=== PATIENT | male | born 1960 | race Caucasian/White ===

== ENCOUNTER 2016-09-05 18:02 | Inpatient (IN) | payer OTHER ==
[~2016-09-05] VITALS: Ht 167.6 cm; Wt 113.0 kg
[~2016-09-05 18:02] MED LIST: ASPI81TA81 PO; BENT20TA PO; METO50TA PO; PANT20 PO; POTA75TA; PRAV40TA2 PO
[2016-09-05 18:04] VITALS: BP 148/70; PULSE 80; RESP 24; TEMP 99.1; O2SAT 90
[2016-09-05 19:13] VITALS: BP 204/89; PULSE 71; RESP 22; O2SAT 94
[2016-09-05 19:15] VITALS: BP 169/74; PULSE 70; PULSE 75; RESP 24; O2SAT 99
[2016-09-05] MEDS ORDERED: SODIUM CHLORIDE 0.9% FLUSH 10 ML FLUSH IVF PRN (19:15)
[2016-09-05] MEDS ORDERED: SODIUM CHLORID 0.9% 500 ML INJ 500 ML IV ONE (19:15)
[2016-09-05] MEDS ORDERED: ONDANSETRON HCL 4 MG/2 ML VIAL IV PUSH ONE (19:15)
--- NOTE | 2016-09-05 19:35 | PD ---
HPI Chief Complaint: Chest Pain Time Seen by Provider: 19:15 Travel History International Travel<30 days: No Contact w/Intl Traveler<30days: No Traveled to known affect area: No History of Present Illness HPI So 56-year-old man who presents to the emergency department complaining of abdominal bloating and vomiting that started ongoing for the past 4-5 days. He also started getting pressure-like discomfort in his chest intermittently, worse with nausea and vomiting, worse when he moves around. States he vomited 3 times today. He hasn't really been able to eat or drink. He's had a little bit of loose stool. His last bowel movement was yesterday was soft and loose. Is no history of abdominal surgeries. He does have a history of CAD with previous CABG in 2009. He also said kidney stones in the past. He is on chronic opiates for hip and back pain. He does not take NSAIDs regularly. He does not drink alcohol regularly. He otherwise has been feeling generally well and healthy prior to the onset of these symptoms. History Past Medical History Narrative Medical CAD, CABG in 2010 Kidney stones Hip and back pain Hypertension on hyperlipidemia BPH Social History Alcohol Use: Yes (SOCIALLY 2 months) Tobacco Use: No (QUIT 2009) Allergies-Medications (Allergen,Severity, Reaction): Coded Allergies: Penicillin (Verified Allergy, Severe, RASH, VOMITING, 09/05/16) Sulfa (Verified Allergy, Severe, RASH, VOMITING, 09/05/16) Reported Meds & Prescriptions Reported Meds & Active Scripts Active Reported Nitroglycerin SL (Nitroglycerin) 0.4 Mg Subl 0.4 Mg SL DIRECTED PRN ONE TABLET UNDER THE TONGUE NEEDED FOR CHEST PAIN, MAY REPEAT EVERY FIVE MINUTES FOR A TOTAL OF 3 DOSES OR CALL 911 IF NO RELIEF Fish Oil 1000 mg ([place]-3 Fatty Acids) 1 Cap Cap 2,000 Mg PO DAILY Tamsulosin (Tamsulosin HCl) 0.4 Mg Cap 0.4 Mg PO HS Lasix (Furosemide) 20 Mg Tab 20 Mg PO DAILY@1600 PRN Lasix (Furosemide) 40 Mg Tab 40 Mg PO DAILY Xanax (Alprazolam) 0.25 Mg Tab 0.25 Mg PO HS PRN Enalapril (Enalapril Maleate) 10 Mg Tab 10 Mg PO BID Isosorbide Mononitrate ER (Isosorbide Mononitrate) 60 Mg Tab 60 Mg PO HS Percocet (Oxycodone-Acetaminophen) 5-325 mg Tab 1 Tab PO 5 TIMES A DAY PRN Buspirone (Buspirone HCl) 5 Mg Tab 5 Mg PO DAILY@1600 Metoprolol Tartrate 100 Mg Tab 100 Mg PO BID Aspir-81 (Aspirin) 81 Mg Tabdr 81 Mg PO DAILY Pravastatin 40 Mg Tab 40 Mg PO DAILY Review of Systems Except as stated in HPI: all other systems reviewed are Neg Physical Exam Narrative GENERAL: 56-year-old man, no acute distress. SKIN: Focused skin assessment warm/dry. NECK: Trachea midline. No JVD. CARDIOVASCULAR: Regular rate and rhythm. No murmur appreciated. RESPIRATORY: No accessory muscle use. Clear to auscultation. Breath sounds equal bilaterally. GASTROINTESTINAL: Abdomen is obese and soft, moderate diffuse tenderness. There is no focal right upper quadrant tenderness. Negative Briones's. MUSCULOSKELETAL: No obvious deformities. No edema. NEUROLOGICAL: Awake and alert. No obvious cranial nerve deficits. Motor grossly within normal limits. Normal speech. PSYCHIATRIC: Appropriate mood and affect; insight and judgment normal. Data Data Last Documented VS Vital Signs Date Time Temp Pulse Resp B/P Pulse Ox O2 Delivery O2 Flow Rate FiO2 09/05/16 20:54 79 22 149/70 98 Nasal Cannula 2 09/05/16 18:04 99.1 Orders Electrocardiogram (09/05/16 19:15) Complete Blood Count With Diff (09/05/16 19:15) Comprehensive Metabolic Panel (09/05/16 19:15) Magnesium (Mg) (09/05/16 19:15) Prothrombin Time / Inr (Pt) (09/05/16 19:15) Act Partial Throm Time (Ptt) (09/05/16 19:15) Troponin I (09/05/16 19:15) Lipase (09/05/16 19:15) Chest, Single Ap (09/05/16 19:15) Ecg Monitoring (09/05/16 19:15) Bilateral Bp Monitoring (09/05/16 19:15) Iv Access Insert/Monitor (09/05/16 19:15) Oximetry (09/05/16 19:15) Oxygen Administration (09/05/16 19:15) Sodium Chloride 0.9% Flush (Ns Flush) (7/15/17 19:15) Sodium Chlorid 0.9% 500 Ml Inj (Ns 500 M (09/05/16 19:15) Ondansetron Inj (Zofran Inj) (09/05/16 19:15) Oxycodone-Acetamin 5-325 Mg (Percocet (09/05/16 21:15) Urinalysis - C+S If Indicated (09/05/16 21:08) Us Kidney/Renal/Bladder (09/05/16 ) Ed Poc Ultrasound (09/05/16 21:08) Admit Order (Ed Use Only) (09/05/16 ) Labs Laboratory Tests Test 09/05/16 19:20 White Blood Count 9.4 TH/MM3 Red Blood Count 4.21 MIL/MM3 Hemoglobin 12.5 GM/DL Hematocrit 37.2 % Mean Corpuscular Volume 88.5 FL Mean Corpuscular Hemoglobin 29.8 PG Mean Corpuscular Hemoglobin 33.6 % Concent Red Cell Distribution Width 14.1 % Platelet Count 166 TH/MM3 Mean Platelet Volume 9.0 FL Neutrophils (%) (Auto) 74.4 % Lymphocytes (%) (Auto) 14.0 % Monocytes (%) (Auto) 11.1 % Eosinophils (%) (Auto) 0.2 % Basophils (%) (Auto) 0.3 % Neutrophils # (Auto) 7.0 TH/MM3 Lymphocytes # (Auto) 1.3 TH/MM3 Monocytes # (Auto) 1.0 TH/MM3 Eosinophils # (Auto) 0.0 TH/MM3 Basophils # (Auto) 0.0 TH/MM3 CBC Comment DIFF FINAL Differential Comment Prothrombin Time 10.7 SEC Prothromb Time International 1.0 RATIO Ratio Activated Partial 31.8 SEC Thromboplast Time Sodium Level 128 MEQ/L Potassium Level 5.0 MEQ/L Chloride Level 93 MEQ/L Carbon Dioxide Level 26.3 MEQ/L Anion Gap 9 MEQ/L Blood Urea Nitrogen 63 MG/DL Creatinine 5.37 MG/DL Estimat Glomerular Filtration 11 ML/MIN Rate Random Glucose 106 MG/DL Calcium Level 8.1 MG/DL Magnesium Level 2.2 MG/DL Total Bilirubin 0.4 MG/DL Aspartate Amino Transf 12 U/L (AST/SGOT) Alanine Aminotransferase 18 U/L (ALT/SGPT) Alkaline Phosphatase 118 U/L Troponin I LESS THAN 0.02 NG/ML Total Protein 7.8 GM/DL Albumin 3.7 GM/DL Lipase 51 U/L [facility] Medical Decision Making Medical Screen Exam Complete: Yes Emergency Medical Condition: Yes Interpretation(s) My review of EKG: Normal sinus rhythm at a rate of 74, normal axis, normal intervals, no ischemia. Differential Diagnosis Gastritis, pancreatitis, ACS, enteritis, kidney stone, other Narrative Course Medical decision making So 56 old man who presents to the emergency department complaining of abdominal bloating vomiting and chest pressure. He looks generally well. Symptoms are fairly diffuse. It doesn't sound like ACS. He does have a history of CABG in the past. Moderate diffuse abdominal tenderness. Is no history of abdominal surgery. I don't think this is gallbladder, pancreatitis or gastritis is possible. No NSAID or alcohol use. ACS possible but seems less likely. Will check labs, will check CT of the abdomen given his diffuse tenderness in the abdominal bloating and vomiting. FINAL: Labs reveal kidney injury with a creatinine 5, BUN 63. Etiology is unclear. On further questioning he does have some urinary difficulties with obstructive uropathy symptoms. Bladder scan shows about 200 mL's in the bladder. He is not able to urinate much he feels like he needs to go. We'll get a formal ultrasound of his kidney ureters and bladder. Vomiting could also suggest dehydration. His potassium, bicarbonate otherwise unremarkable. We'll plan on admission. Procedures Procedure Narrative Point of care ultrasound: Focus transabdominal ultrasounds perform immediate the bedside for evidence of urinary retention. He had about 200+ mL's of urine in the bladder. Diagnosis Primary Impression: Kidney injury Additional Impressions: Vomiting Chest pain Richi Calhoun MD Sep 05, 2016 19:35
--- NOTE | 2016-09-05 19:41 | RADRPT ---
EXAM DATE/TIME: 09/05/2016 19:28 [facility] COMPARISON: No previous studies available for comparison. INDICATIONS : Chest pressure. MEDICAL HISTORY : Cardiovascular disease. SURGICAL HISTORY : Triple bypass ENCOUNTER: Initial ACUITY: 2 days PAIN SCORE: 7/10 LOCATION: Bilateral chest Center FINDINGS: The lungs are clear without infiltrate, nodule, or mass. There is no appreciable pleural effusion fo r technique. Heart and mediastinum are unremarkable. There is evidence for prior median sternotomy. CONCLUSION: No acute cardiopulmonary disease. Oneal Bridges MD on September 05, 2016 at 19:39 Board Certified Radiologist. This report was verified electronically.
[2016-09-05] MEDS ORDERED: PERC5TAB12 PO (19:43)
[2016-09-05] MEDS ORDERED: BUSP5TAB PO (19:43)
[2016-09-05] MEDS ORDERED: METO100T PO (19:43)
[2016-09-05] MEDS ORDERED: ALPR.25 PO (19:44)
[2016-09-05] MEDS ORDERED: ENAL10TA PO (19:44)
[2016-09-05] MEDS ORDERED: ISOS60TA PO (19:44)
[2016-09-05] MEDS ORDERED: FURO1TAB60 PO (19:47)
[2016-09-05] MEDS ORDERED: TAMS0.4C4 PO (19:47)
[2016-09-05] MEDS ORDERED: FURO1TAB62 PO (19:47)
[2016-09-05] MEDS ORDERED: NITR1SUB3 SL (19:47)
[2016-09-05] MEDS ORDERED: FISH100020 PO (19:47)
[2016-09-05 20:18] LABS: BASOPHIL % 0.3 % (0.0-2.0); EOSINOPHIL % 0.2 % (0.0-4.0); HEMATOCRIT 37.2 % (39.0-51.0); HEMO FLAGS DIFF FINAL; LYMPHOCYTE # 1.3 TH/MM3 (1.0-4.8); MEAN CELL VOLUME 88.5 FL (80.0-100.0); MEAN CORPUSCULAR HEMOGLOBIN 29.8 PG (27.0-34.0); MEAN CORPUSCULAR HGB CONC 33.6 % (32.0-36.0); MONO % 11.1 % (0.0-8.0); NEUT % 74.4 % (16.0-70.0); PLATELET COUNT 166 TH/MM3 (150-450); RED BLOOD COUNT 4.21 MIL/MM3 (4.50-5.90); RED CELL DISTRIBUTION WIDTH 14.1 % (11.6-17.2); WHITE BLOOD COUNT 9.4 TH/MM3 (4.0-11.0)
[2016-09-05 20:35] LABS: ANION GAP 9 MEQ/L (5-15); AST (GOT) 12 U/L (15-37); BICARBONATE 26.3 MEQ/L (21.0-32.0); BLOOD UREA NITROGEN 63 MG/DL (7-18); CHLORIDE 93 MEQ/L (98-107); GLOMERULAR FILTRATION RATE 11 ML/MIN (>89); MAGNESIUM 2.2 MG/DL (1.5-2.5); SODIUM (NA) 128 MEQ/L (136-145)
[2016-09-05 20:36] LABS: ALT (GPT) 18 U/L (12-78)
[2016-09-05 20:40] LABS: ALKALINE PHOSPHATASE 118 U/L (45-117); TOTAL BILIRUBIN ADULT 0.4 MG/DL (0.2-1.0)
[2016-09-05 20:54] VITALS: BP 149/70; PULSE 79; RESP 22; O2SAT 98
[2016-09-05 21:03] LABS: APTT (PATIENT) 31.8 SEC (24.3-30.1); PROTHROMBIN TIME - PATIENT 10.7 SEC (9.8-11.6)
[2016-09-05] MEDS ORDERED: oxyCODONE/ACETAMINOPHEN 5 MG/325 MG TAB PO ONE (21:15)
[2016-09-05 22:10] LABS: BLOOD, URINE NEG (NEG); COMMENT (UR) CULT NOT INDICATED; CULTURE IF INDICATED CULT NOT INDICATED; GLUCOSE,URINE NEG (NEG); KETONE, URINE NEG (NEG); NITRITE,URINE NEG (NEG); URINE COLOR LIGHT-YELLOW (YELLW/STRAW)
[2016-09-05] MEDS ORDERED: ALPRAZolam 0.25 MG TAB PO PRN (22:30)
--- NOTE | 2016-09-05 22:55 | HHI.HP ---
HPI Service [facility] Primary Care Physician Bradley Osorio M.D. Admission Diagnosis acute kidney injury, vomiting, chest pain Chief Complaint: progressive nausea and vomit abdominal pain trouble urinating since wednesday Travel History International Travel<30 Days: No Contact w/Intl Traveler <30 Da: No Traveled to Known Affected Are: No History of Present Illness So 56-year-old man who presents to the emergency department complaining of abdominal bloating and vomiting that started ongoing for the past 4-5 days. He also started getting pressure-like discomfort in his chest intermittently, worse with nausea and vomiting, worse when he moves around. States he vomited 3 times today. He hasn't really been able to eat or drink. He's had a little bit of loose stool. His last bowel movement was yesterday was soft and loose. Is no history of abdominal surgeries. He does have a history of CAD with previous CABG in 2009. He also said kidney stones in the past and with this current problem has had some trouble urinating. He is on chronic opiates for hip and back pain. He does not take NSAIDs regularly but did take 2 motrin. He does not drink alcohol regularly. He otherwise has been feeling generally well and healthy prior to the onset of these symptoms. Review of Systems Constitutional: COMPLAINS OF: Change in appetite Cardiovascular: COMPLAINS OF: Chest pain Gastrointestinal: COMPLAINS OF: Abdominal pain, Nausea, Vomiting Past Family Social History Past Medical History cad,s/p bypass,hypertension,hyperlipdemia bph Past Surgical History cabs Reported Medications Nitroglycerin SL (Nitroglycerin) 0.4 Mg Subl 0.4 Mg SL DIRECTED PRN ONE TABLET UNDER THE TONGUE NEEDED FOR CHEST PAIN, MAY REPEAT EVERY FIVE MINUTES FOR A TOTAL OF 3 DOSES OR CALL 911 IF NO RELIEF Fish Oil 1000 mg ([place]-3 Fatty Acids) 1 Cap Cap 2,000 Mg PO DAILY Tamsulosin (Tamsulosin HCl) 0.4 Mg Cap 0.4 Mg PO HS Lasix (Furosemide) 20 Mg Tab 20 Mg PO DAILY@1600 PRN Lasix (Furosemide) 40 Mg Tab 40 Mg PO DAILY Xanax (Alprazolam) 0.25 Mg Tab 0.25 Mg PO HS PRN Enalapril (Enalapril Maleate) 10 Mg Tab 10 Mg PO BID Isosorbide Mononitrate ER (Isosorbide Mononitrate) 60 Mg Tab 60 Mg PO HS Percocet (Oxycodone-Acetaminophen) 5-325 mg Tab 1 Tab PO 5 TIMES A DAY PRN Buspirone (Buspirone HCl) 5 Mg Tab 5 Mg PO DAILY@1600 Metoprolol Tartrate 100 Mg Tab 100 Mg PO BID Aspir-81 (Aspirin) 81 Mg Tabdr 81 Mg PO DAILY Pravastatin 40 Mg Tab 40 Mg PO DAILY Allergies: Coded Allergies: Penicillin (Verified Allergy, Severe, RASH, VOMITING, 09/05/16) Sulfa (Verified Allergy, Severe, RASH, VOMITING, 09/05/16) Social History former smoker former social drinker Physical Exam Vital Signs Vital Signs Date Time Temp Pulse Resp B/P Pulse Ox O2 Delivery O2 Flow Rate FiO2 09/05/16 20:54 79 22 149/70 98 Nasal Cannula 2 09/05/16 19:15 99 Nasal Cannula 2 09/05/16 19:15 75 24 169/74 99 Nasal Cannula 09/05/16 19:15 70 09/05/16 19:13 71 22 204/89 94 Room Air 09/05/16 18:04 99.1 80 24 148/70 90 Room Air Physical Exam GENERAL: This is a well-nourished, well-developed patient, in no apparent distress. SKIN: No rashes, ecchymoses or lesions. Cool and dry. HEAD: Atraumatic. Normocephalic. No temporal or scalp tenderness. EYES: Pupils equal round and reactive. Extraocular motions intact. No scleral icterus. No injection or drainage. ENT: Nose without bleeding, purulent drainage or septal hematoma. Throat without erythema, tonsillar hypertrophy or exudate. Uvula midline. Airway patent. NECK: Trachea midline. No JVD or lymphadenopathy. Supple, nontender, no meningeal signs. CARDIOVASCULAR: Regular rate and rhythm without murmurs, gallops, or rubs. RESPIRATORY: Clear to auscultation. Breath sounds equal bilaterally. No wheezes , rales, or rhonchi. GASTROINTESTINAL: Abdomen soft, mild diffuse tender, nondistended. No hepato- splenomegaly, or palpable masses. No guarding. MUSCULOSKELETAL: Extremities without clubbing, cyanosis, or edema. No joint tenderness, effusion, or edema noted. No calf tenderness. Negative Homans sign bilaterally. NEUROLOGICAL: Awake and alert. Cranial nerves II through XII intact. Motor and sensory grossly within normal limits. Five out of 5 muscle strength in all muscle groups. Normal speech. Laboratory Laboratory Tests Test 09/05/16 09/05/16 19:20 21:23 White Blood Count 9.4 Red Blood Count 4.21 Hemoglobin 12.5 Hematocrit 37.2 Mean Corpuscular Volume 88.5 Mean Corpuscular Hemoglobin 29.8 Mean Corpuscular Hemoglobin 33.6 Concent Red Cell Distribution Width 14.1 Platelet Count 166 Mean Platelet Volume 9.0 Neutrophils (%) (Auto) 74.4 Lymphocytes (%) (Auto) 14.0 Monocytes (%) (Auto) 11.1 Eosinophils (%) (Auto) 0.2 Basophils (%) (Auto) 0.3 Neutrophils # (Auto) 7.0 Lymphocytes # (Auto) 1.3 Monocytes # (Auto) 1.0 Eosinophils # (Auto) 0.0 Basophils # (Auto) 0.0 CBC Comment DIFF FINAL Differential Comment Prothrombin Time 10.7 Prothromb Time International 1.0 Ratio Activated Partial 31.8 Thromboplast Time Sodium Level 128 Potassium Level 5.0 Chloride Level 93 Carbon Dioxide Level 26.3 Anion Gap 9 Blood Urea Nitrogen 63 Creatinine 5.37 Estimat Glomerular Filtration 11 Rate Random Glucose 106 Calcium Level 8.1 Magnesium Level 2.2 Total Bilirubin 0.4 Aspartate Amino Transf 12 (AST/SGOT) Alanine Aminotransferase 18 (ALT/SGPT) Alkaline Phosphatase 118 Troponin I LESS THAN 0.02 Total Protein 7.8 Albumin 3.7 Lipase 51 Urine Color LIGHT-YELLOW Urine Turbidity CLEAR Urine pH 5.0 Urine Specific [place] 1.008 Urine Protein NEG Urine Glucose (UA) NEG Urine Ketones NEG Urine Occult Blood NEG Urine Nitrite NEG Urine Bilirubin NEG Urine Urobilinogen LESS THAN 2.0 Urine Leukocyte Esterase NEG Microscopic Urinalysis Comment CULT NOT INDICATED Result Diagram: 09/05/16191909/05/161919 Imaging Last 24 hours Impressions Chest X-Ray 09/05/161914 Signed Impressions: Service Date/Time: Wednesday, September 05, 2016 19:28 - CONCLUSION: No acute cardiopulmonary disease. Oneal Bridges MD Course in er had bladder scan about 200 cc and pending renal ultrasound Assessment and Plan Problem List: (1) Kidney injury Status: Acute Plan: patient had blood work done early this week results can be obtained in am ,patient has not been able to eat or drink well since wednesday contributing to the kidney injury will try full liquids and consult renal recheck labs give some iv fluid slowly patient will be on hold for now marcela and furosemide (2) Abdominal colic Status: Acute Plan: may have gastroenteritis will follow up labs check ultrasound and consider CT abd without contrast (3) Hypertension Status: Chronic Plan: continue home meds Assessment and Plan further plan as case develops Code Status full Discussed Condition With patient Physician Certification 2 Midnight Certification Type: Admission for Inpatient Services Order for Inpatient Services The services are ordered in accordance with Medicare regulations or non- Medicare payer requirements, as applicable. In the case of services not specified as inpatient-only, they are appropriately provided as inpatient services in accordance with the 2-midnight benchmark. Estimated LOS (days): 3 3 days is the estimated time the patient will need to remain in the hospital, assuming treatment plan goals are met and no additional complications. Post-Hospital Plan: Not yet determined Blake Mendiola MD Sep 05, 2016 22:55
[2016-09-05] MEDS ORDERED: NALOXONE HCL 0.4 MG/ML AMP IV PRN (23:00)
[2016-09-05] MEDS ORDERED: LACTULOSE SYRUP 20 GM/30 ML CUP PO PRN (23:00)
[2016-09-05] MEDS ORDERED: ACETAMINOPHEN 325 MG TAB PO PRN (23:00)
[2016-09-05] MEDS ORDERED: MAGNESIUM HYDROXIDE SUSP 30 ML CUP PO PRN (23:00)
[2016-09-05] MEDS ORDERED: SENNOSIDES 8.6 MG TAB PO PRN (23:00)
[2016-09-05] MEDS ORDERED: SODIUM CHLORIDE 0.9% FLUSH 10 ML FLUSH IV FLUSH PRN (23:00)
[2016-09-05] MEDS ORDERED: ONDANSETRON HCL 4 MG/2 ML VIAL IVP PRN (23:00)
[2016-09-05] MEDS ORDERED: BISACODYL 10 MG SUPP RECTAL PRN (23:00)
--- NOTE | 2016-09-05 23:08 | RADRPT ---
EXAM DATE/TIME: 09/05/2016 22:26 [facility] COMPARISON: CT ABDOMEN & PELVIS W CONTRAST, January 08, 2016, 20:43. INDICATIONS : Increased labs. MEDICAL HISTORY : Hypertension. Hypercholesterolemia. Myocardial infarction. Kidney stones. Arthritis. SURGICAL HISTORY : Coronary artery bypass graft. Cardiac catheterization. Bilateral hip replacement. ENCOUNTER: Initial ACUITY: 1 day PAIN SCORE: 5/10 LOCATION: Bilateral flank MEASUREMENTS: RIGHT KIDNEY: 13.2 x 5.8 x 7.2 cm LEFT KIDNEY: 13.2 x 5.3 x 6.9 cm FINDINGS: RIGHT KIDNEY: 3.7 x 3.6 cm simple cyst right lower pole kidney. LEFT KIDNEY: Renal cortex is normal in thickness and echotexture. No hydronephrosis, stone, or mass. BLADDER: Within normal limits given the degree of distension. CONCLUSION: 1. Simple cyst right kidney. Gómez Cobb MD on September 05, 2016 at 23:06 Board Certified Radiologist. This report was verified electronically.
[2016-09-05 23:09] VITALS: BP 145/63
[2016-09-05 23:20] VITALS: BP 171/83; PULSE 80; RESP 17; TEMP 98.1; O2SAT 94
[2016-09-05] MEDS: SODIUM CHLOR 0.45% 1000 ML INJ 1,000 ML IV SCH (23:37)
[2016-09-05] MEDS: oxyCODONE/ACETAMINOPHEN 5 MG/325 MG TAB PO PRN (23:38)
[2016-09-06 04:10] VITALS: BP 122/56; PULSE 71; RESP 17; TEMP 97.3; O2SAT 95
[2016-09-06 05:02] LABS: AUTOMATED NEUTROPHIL # 4.7 TH/MM3 (1.8-7.7); BASOPHIL % 0.4 % (0.0-2.0); EOSINOPHIL # 0.1 TH/MM3 (0-0.4); EOSINOPHIL % 0.9 % (0.0-4.0); HEMATOCRIT 33.4 % (39.0-51.0); HEMO FLAGS DIFF FINAL; LYMPH % 24.5 % (9.0-44.0); LYMPHOCYTE # 1.9 TH/MM3 (1.0-4.8); MEAN CELL VOLUME 88.2 FL (80.0-100.0); MEAN CORPUSCULAR HEMOGLOBIN 29.9 PG (27.0-34.0); MEAN CORPUSCULAR HGB CONC 33.9 % (32.0-36.0); NEUT % 61.2 % (16.0-70.0); PLATELET COUNT 153 TH/MM3 (150-450); RED BLOOD COUNT 3.78 MIL/MM3 (4.50-5.90); RED CELL DISTRIBUTION WIDTH 14.1 % (11.6-17.2); WHITE BLOOD COUNT 7.7 TH/MM3 (4.0-11.0)
[2016-09-06] MEDS: oxyCODONE/ACETAMINOPHEN 5 MG/325 MG TAB PO PRN ×4 (05:22→22:31)
[2016-09-06 05:24] LABS: ANION GAP 8 MEQ/L (5-15); AST (GOT) 11 U/L (15-37); BICARBONATE 27.9 MEQ/L (21.0-32.0); BLOOD UREA NITROGEN 64 MG/DL (7-18); CHLORIDE 98 MEQ/L (98-107); GLOMERULAR FILTRATION RATE 11 ML/MIN (>89); POTASSIUM 5.1 MEQ/L (3.5-5.1); SODIUM (NA) 134 MEQ/L (136-145)
[2016-09-06 05:25] LABS: ALT (GPT) 15 U/L (12-78)
[2016-09-06 05:27] LABS: ALKALINE PHOSPHATASE 102 U/L (45-117); TOTAL BILIRUBIN ADULT 0.4 MG/DL (0.2-1.0)
[2016-09-06 08:00] VITALS: BP 119/55; PULSE 70; RESP 18; TEMP 98; O2SAT 94
[2016-09-06] MEDS ORDERED: MISCELLANEOUS NURSING INFORMATION ONE (09:00)
[2016-09-06] MEDS: SODIUM CHLORIDE 0.9% FLUSH 10 ML FLUSH IV FLUSH SCH ×2 (09:00→21:00)
[2016-09-06] MEDS: METOPROLOL TARTRATE 100 MG TAB PO SCH ×2 (09:03→21:24)
[2016-09-06] MEDS: DOCUSATE SODIUM 50 MG/SENNA 8.6 MG TAB PO SCH ×2 (09:03→21:24)
[2016-09-06] MEDS: ASPIRIN EC 81 MG TABEC PO SCH (09:03)
[2016-09-06] MEDS: SODIUM CHLOR 0.45% 1000 ML INJ 1,000 ML IV SCH (10:55)
[2016-09-06 12:00] VITALS: BP 101/55; PULSE 60; RESP 18; TEMP 97.9; O2SAT 94
--- NOTE | 2016-09-06 12:38 | EKG ---
Date Performed: 09/05/2016 Time Performed: 19:13:23 PTAGE: 56 years EKG: Sinus rhythm WITH SINUS ARRHYTHMIA Compared to prior tracing no significant change NORMAL ECG PREVIOUS TRACING : 01/08/2016 20.56 DOCTOR: Mario Payan Interpretating Date/Time 09/06/2016 12:34:00
--- NOTE | 2016-09-06 14:08 | HHI.PR ---
Subjective Remarks still nauseated and vomiting not tolerating food get mid abdomen pain relieved with vomiting. somewhat dizzy Objective Vitals oriented heart reg lung cta abd s/nt/bs ext no edema Vital Signs Date Time Temp Pulse Resp B/P Pulse Ox O2 Delivery O2 Flow Rate FiO2 09/06/16 12:27 18 09/06/16 12:00 97.9 60 18 101/55 94 09/06/16 08:00 98.0 70 18 119/55 94 09/06/16 04:10 97.3 71 17 122/56 95 09/05/16 23:20 98.1 80 17 171/83 94 09/05/16 23:09 82 18 145/63 95 09/05/16 20:54 79 22 149/70 98 Nasal Cannula 2 09/05/16 19:15 99 Nasal Cannula 2 09/05/16 19:15 75 24 169/74 99 Nasal Cannula 09/05/16 19:15 70 09/05/16 19:13 71 22 204/89 94 Room Air 09/05/16 18:04 99.1 80 24 148/70 90 Room Air 09/05/16 09/05/16 09/06/16 14:59 22:59 06:59 Intake Total 940 ml Output Total 400 ml Balance 540 ml Intake Oral 440 ml IV Total 500 ml Output Urine Total 400 ml # Bowel Movements 0 Result Diagram: 09/06/1641009/06/16410 Imaging Last 24 hours Impressions Chest X-Ray 09/05/161914 Signed Impressions: Service Date/Time: Monday, September 05, 2016 19:28 - CONCLUSION: No acute cardiopulmonary disease. K. Sindey Bridges MD A/P Problem List: (1) GREGG (acute kidney injury) Status: Acute Plan: Pt is 56 yo with severe back and right hip pain "OA" says he was trying to get disability for the above 5-6 days ago began developing mid abdomen pains relieved with vomiting and made worse with eating GREGG on presentation. possible prerenal from n/v poor po... ...hydrate and if no better then eval for other etiologies. Esophagitis due to vomiting ct a/p to evaluate pain/vomiting pending cont ivf and prn antiemetics add ppi clears as tolerated dvt prophyaxis renal consulted. f/u pending studies. hold marcela and diuretic (2) Abdominal pain Status: Acute (3) Vomiting Status: Acute (4) Hip osteoarthritis Status: Chronic (5) Hypertension Status: Chronic Plan: continue home meds (6) CAD (coronary artery disease) Status: Chronic Plan: cabg x 3 cont home meds Eleazar Crane MD Sep 06, 2016 14:08
[2016-09-06] MEDS: SODIUM CHLOR 0.9% 1000 ML INJ 1,000 ML IV SCH ×2 (14:09→23:51)
[2016-09-06] MEDS ORDERED: ONDANSETRON HCL 4 MG/2 ML VIAL IV PUSH ONE (14:30)
[2016-09-06] MEDS ORDERED: PANTOPRAZOLE SODIUM 40 MG VIAL IV PUSH ONE (14:30)
[2016-09-06] MEDS ORDERED: SODIUM CHLORID 0.9% 500 ML INJ 500 ML IV ONE (14:30)
--- NOTE | 2016-09-06 14:35 | PD.CONS ---
HPI Service Nephrology Consult Requested By Dr. Mendiola Reason for Consult Acute kidney injury Primary Care Physician Bradley Osorio M.D. History of Present Illness Patient is a 56-year-old white male who states that he has history of hypertension, coronary artery disease status post CABG he states that he was having a disability check up and after going to the doctor's office records Persistent nausea and vomiting since last Wednesday and he has several episodes a cold dehydrated and his urine output did decline, is the creatinine is gradually going up from 5.3-5.5, his blood pressure is borderline low. He states he took her 2 or 3 Ibuprofen but he does not use NSAIDs over long-term Review of Systems Constitutional: COMPLAINS OF: Fatigue Gastrointestinal: COMPLAINS OF: Nausea, Vomiting Musculoskeletal: COMPLAINS OF: Joint pain Past Family Social History Allergies: Coded Allergies: Penicillin (Verified Allergy, Severe, RASH, VOMITING, 09/05/16) Sulfa (Verified Allergy, Severe, RASH, VOMITING, 09/05/16) Past Medical History Hypertension Coronary artery disease Osteoarthritis Hip pain Hyperlipidemia Past Surgical History Coronary artery bypass surgery 2009 Bilateral hip replacement Reported Medications Reported Meds & Active Scripts Active Reported Nitroglycerin SL (Nitroglycerin) 0.4 Mg Subl 0.4 Mg SL DIRECTED PRN ONE TABLET UNDER THE TONGUE NEEDED FOR CHEST PAIN, MAY REPEAT EVERY FIVE MINUTES FOR A TOTAL OF 3 DOSES OR CALL 911 IF NO RELIEF Fish Oil 1000 mg ([place]-3 Fatty Acids) 1 Cap Cap 2,000 Mg PO DAILY Tamsulosin (Tamsulosin HCl) 0.4 Mg Cap 0.4 Mg PO HS Lasix (Furosemide) 20 Mg Tab 20 Mg PO DAILY@1600 PRN Lasix (Furosemide) 40 Mg Tab 40 Mg PO DAILY Xanax (Alprazolam) 0.25 Mg Tab 0.25 Mg PO HS PRN Enalapril (Enalapril Maleate) 10 Mg Tab 10 Mg PO BID Isosorbide Mononitrate ER (Isosorbide Mononitrate) 60 Mg Tab 60 Mg PO HS Percocet (Oxycodone-Acetaminophen) 5-325 mg Tab 1 Tab PO 5 TIMES A DAY PRN Buspirone (Buspirone HCl) 5 Mg Tab 5 Mg PO DAILY@1600 Metoprolol Tartrate 100 Mg Tab 100 Mg PO BID Aspir-81 (Aspirin) 81 Mg Tabdr 81 Mg PO DAILY Pravastatin 40 Mg Tab 40 Mg PO DAILY Active Ordered Medications Current Medications Medications (Trade) Dose Ordered Sig/Nancy Route Start Time Stop Time Status Last Admin (Xanax) 0.25 mg HS PRN PO 09/05/16 22:30 (Ecotrin Ec) 81 mg DAILY PO 09/06/16 09:00 09/06/16 09:03 (Buspar) 5 mg DAILY@1600 PO 09/06/16 16:00 (Imdur) 60 mg HS PO 09/06/16 21:00 (Lopressor) 100 mg BID PO 09/06/16 09:00 09/06/16 09:03 (Flomax) 0.4 mg HS PO 09/06/16 21:00 (NS Flush) 2 ml UNSCH PRN IV FLUSH 09/05/16 23:00 (NS Flush) 2 ml BID IV FLUSH 09/06/16 09:00 (Tylenol) 650 mg Q4H PRN PO 09/05/16 23:00 (Narcan Inj) 0.4 mg UNSCH PRN IV 09/05/16 23:00 (Monica-Colace) 1 tab BID PO 09/06/16 09:00 09/06/16 09:03 (Milk Of Magnesia Liq) 30 ml Q12H PRN PO 09/05/16 23:00 (Senokot) 17.2 mg Q12H PRN PO 09/05/16 23:00 (Dulcolax Supp) 10 mg DAILY PRN RECTAL 09/05/16 23:00 (Lactulose Liq) 30 ml DAILY PRN PO 09/05/16 23:00 (Pneumovax-23 Inj) 25 mcg ONCE ONCE IM 09/07/16 10:00 09/07/16 10:01 (Zofran Inj) 4 mg Q4H PRN IVP 09/06/16 15:00 Ondansetron HCl 4 mg 4 mg ONCE ONCE IV PUSH 09/06/16 14:30 09/06/16 14:31 09/06/16 14:08 (NS 1000 ml Inj) 1,000 ml @ 100 mls/hr Q10H IV 09/06/16 14:30 09/06/16 14:09 (Protonix Inj) 40 mg ONCE ONCE IV PUSH 09/06/16 14:30 09/06/16 14:31 (Protonix Inj) 40 mg Q12H IV PUSH 09/06/16 21:00 Family History Noncontributory Social History Used to smoke until 2009, drinks alcohol socially Physical Exam Vital Signs Vital Signs Date Time Temp Pulse Resp B/P Pulse Ox O2 Delivery O2 Flow Rate FiO2 09/06/16 12:27 18 09/06/16 12:00 97.9 60 18 101/55 94 09/06/16 08:00 98.0 70 18 119/55 94 09/06/16 04:10 97.3 71 17 122/56 95 09/05/16 23:20 98.1 80 17 171/83 94 09/05/16 23:09 82 18 145/63 95 09/05/16 20:54 79 22 149/70 98 Nasal Cannula 2 09/05/16 19:15 99 Nasal Cannula 2 09/05/16 19:15 75 24 169/74 99 Nasal Cannula 09/05/16 19:15 70 09/05/16 19:13 71 22 204/89 94 Room Air 09/05/16 18:04 99.1 80 24 148/70 90 Room Air Physical Exam GENERAL: Well-nourished, well-developed patient. SKIN: Warm and dry. HEAD: Normocephalic. EYES: No scleral icterus. No injection or drainage. NECK: Supple, trachea midline. No JVD or lymphadenopathy. CARDIOVASCULAR: Regular rate and rhythm without murmurs, gallops, or rubs. RESPIRATORY: Breath sounds equal bilaterally. No accessory muscle use. GASTROINTESTINAL: Abdomen soft, non-tender, nondistended. EXTREMITIES: No cyanosis, or edema. NEUROLOGICAL: Awake, alert, and oriented x 3. Non-focal. Laboratory Laboratory Tests Test 09/05/16 09/05/16 09/06/16 19:20 21:23 04:11 White Blood Count 9.4 7.7 Red Blood Count 4.21 3.78 Hemoglobin 12.5 11.3 Hematocrit 37.2 33.4 Mean Corpuscular Volume 88.5 88.2 Mean Corpuscular Hemoglobin 29.8 29.9 Mean Corpuscular Hemoglobin 33.6 33.9 Concent Red Cell Distribution Width 14.1 14.1 Platelet Count 166 153 Mean Platelet Volume 9.0 9.0 Neutrophils (%) (Auto) 74.4 61.2 Lymphocytes (%) (Auto) 14.0 24.5 Monocytes (%) (Auto) 11.1 13.0 Eosinophils (%) (Auto) 0.2 0.9 Basophils (%) (Auto) 0.3 0.4 Neutrophils # (Auto) 7.0 4.7 Lymphocytes # (Auto) 1.3 1.9 Monocytes # (Auto) 1.0 1.0 Eosinophils # (Auto) 0.0 0.1 Basophils # (Auto) 0.0 0.0 CBC Comment DIFF FINAL DIFF FINAL Differential Comment Prothrombin Time 10.7 Prothromb Time International 1.0 Ratio Activated Partial 31.8 Thromboplast Time Sodium Level 128 134 Potassium Level 5.0 5.1 Chloride Level 93 98 Carbon Dioxide Level 26.3 27.9 Anion Gap 9 8 Blood Urea Nitrogen 63 64 Creatinine 5.37 5.52 Estimat Glomerular Filtration 11 11 Rate Random Glucose 106 83 Calcium Level 8.1 7.7 Magnesium Level 2.2 Total Bilirubin 0.4 0.4 Aspartate Amino Transf 12 11 (AST/SGOT) Alanine Aminotransferase 18 15 (ALT/SGPT) Alkaline Phosphatase 118 102 Troponin I LESS THAN 0.02 Total Protein 7.8 6.7 Albumin 3.7 3.2 Lipase 51 Urine Color LIGHT-YELLOW Urine Turbidity CLEAR Urine pH 5.0 Urine Specific Smyer 1.008 Urine Protein NEG Urine Glucose (UA) NEG Urine Ketones NEG Urine Occult Blood NEG Urine Nitrite NEG Urine Bilirubin NEG Urine Urobilinogen LESS THAN 2.0 Urine Leukocyte Esterase NEG Microscopic Urinalysis Comment CULT NOT INDICATED Result Diagram: 09/06/16 0411 09/06/16 0411 Imaging Last Impressions Chest X-Ray 09/05/16 1915 Signed Impressions: Service Date/Time: Monday, September 05, 2016 19:28 - CONCLUSION: No acute cardiopulmonary disease. Oneal Bridges MD Renal Ultrasound 09/05/16 0000 Signed Impressions: Service Date/Time: Monday, September 05, 2016 22:26 - CONCLUSION: 1. Simple cyst right kidney. Gómez Cobb MD Assessment and Plan Problem List: (1) Acute renal failure Plan: He appears to have prerenal azotemia with severe dehydration, his blood pressure is borderline I Will fluid bolus him with normal saline 500 cc and then agree with hydration with IV normal saline, he said that his IV fluids were stopped as he was throwing up actively I'll continue to hydrate follow BMP avoid nephrotoxins Records his creatinine was 1.13 in December 2015 Avoid dye studies are gadolinium studies (2) Abdominal pain Plan: Been evaluated GI consulted (3) Vomiting Plan: Due to GI upset (4) Dehydration Plan: Hydration ordered Arabella Joy MD Sep 06, 2016 14:35
[2016-09-06] MEDS: busPIRone HCL 5 MG TAB PO SCH (15:19)
[2016-09-06 16:00] VITALS: BP 112/58; PULSE 76; RESP 18; TEMP 97.3; O2SAT 96
[2016-09-06] MEDS: ONDANSETRON HCL 4 MG/2 ML VIAL IVP PRN ×2 (18:07→22:34)
[2016-09-06 20:20] VITALS: BP 125/59; PULSE 71; RESP 18; TEMP 98.2; O2SAT 96
[2016-09-06] MEDS: ISOSORBIDE MONONITRATE 60 MG TAB PO SCH (21:24)
[2016-09-06] MEDS: TAMSULOSIN HCL 0.4 MG CAP PO SCH (21:25)
[2016-09-06] MEDS: PANTOPRAZOLE SODIUM 40 MG VIAL IV PUSH SCH (21:25)
[2016-09-06 23:40] VITALS: BP 127/55; PULSE 63; RESP 17; TEMP 98.1; O2SAT 95
[2016-09-07 07:49] LABS: AUTOMATED NEUTROPHIL # 5.4 TH/MM3 (1.8-7.7); BASOPHIL # 0.1 TH/MM3 (0-0.2); BASOPHIL % 0.8 % (0.0-2.0); EOSINOPHIL % 0.6 % (0.0-4.0); HEMATOCRIT 33.2 % (39.0-51.0); HEMO FLAGS DIFF FINAL; LYMPH % 16.7 % (9.0-44.0); LYMPHOCYTE # 1.3 TH/MM3 (1.0-4.8); MEAN CELL VOLUME 88.1 FL (80.0-100.0); MEAN CORPUSCULAR HEMOGLOBIN 29.7 PG (27.0-34.0); MEAN CORPUSCULAR HGB CONC 33.7 % (32.0-36.0); MONO % 12.3 % (0.0-8.0); NEUT % 69.6 % (16.0-70.0); PLATELET COUNT 145 TH/MM3 (150-450); RED BLOOD COUNT 3.77 MIL/MM3 (4.50-5.90); RED CELL DISTRIBUTION WIDTH 14.1 % (11.6-17.2); WHITE BLOOD COUNT 7.8 TH/MM3 (4.0-11.0)
[2016-09-07 08:00] VITALS: BP 143/66; PULSE 69; RESP 18; TEMP 99.3; O2SAT 96
[2016-09-07 08:08] LABS: POTASSIUM 5.6 MEQ/L (3.5-5.1)
[2016-09-07] MEDS: SODIUM CHLORIDE 0.9% FLUSH 10 ML FLUSH IV FLUSH SCH ×2 (09:00→21:33)
[2016-09-07] MEDS: oxyCODONE/ACETAMINOPHEN 5 MG/325 MG TAB PO PRN ×4 (09:31→21:31)
[2016-09-07] MEDS: PANTOPRAZOLE SODIUM 40 MG VIAL IV PUSH SCH ×2 (09:32→21:31)
[2016-09-07] MEDS: METOPROLOL TARTRATE 100 MG TAB PO SCH ×2 (09:32→21:32)
[2016-09-07] MEDS: DOCUSATE SODIUM 50 MG/SENNA 8.6 MG TAB PO SCH ×2 (09:33→21:00)
[2016-09-07] MEDS: ASPIRIN EC 81 MG TABEC PO SCH (09:33)
[2016-09-07] MEDS: ONDANSETRON HCL 4 MG/2 ML VIAL IVP PRN ×4 (09:37→21:31)
[2016-09-07] MEDS ORDERED: PNEUMOCOCCAL POLYVALENT INJ 25 MCG/0.5 ML SYR IM ONE (10:00)
[2016-09-07] MEDS: SODIUM CHLOR 0.9% 1000 ML INJ 1,000 ML IV SCH ×3 (10:30→21:33)
--- NOTE | 2016-09-07 10:32 | RADRPT ---
EXAM DATE/TIME: 09/07/2016 09:51 [facility] COMPARISON: CT ABDOMEN & PELVIS W/O CONTRAST, August 18, 2011, 5:39. INDICATIONS : Diffuse abdomen pain and distention for five days. ORAL CONTRAST: No oral contrast ingested. RADIATION DOSE: 16.14 CTDIvol (mGy) ; Patient body habitus MEDICAL HISTORY : Cardiovascular disease. Hypertension. Renal calculi. SURGICAL HISTORY : CABG ENCOUNTER: Initial ACUITY: 4 - 6 days PAIN SCALE: 7/10 LOCATION: Bilateral abdomen TECHNIQUE: Volumetric scanning of the abdomen and pelvis was performed. Using automated exposure control and ad justment of the mA and/or kV according to patient size, radiation dose was kept as low as reasonably achievable to obtain optimal diagnostic quality images. DICOM format image data is available electro nically for review and comparison. FINDINGS: LOWER LUNGS: Tiny pleural effusions and bibasilar densities, likely atelectasis greater in the right lower lobe. LIVER: Homogeneous density without lesion. There is no dilation of the biliary tree. No calcified gallston es. SPLEEN: Normal size without lesion. PANCREAS: Within normal limits. KIDNEYS: Normal in size and shape. There is no mass, stone, or hydronephrosis. Cyst in the lower pole right k idney again seen. ADRENAL GLANDS: Within normal limits. VASCULAR: There is no aortic aneurysm. BOWEL/MESENTERY: The stomach, small bowel, and colon demonstrate no acute abnormality. There is no free intraperitone al air or fluid. There is some minimal stranding in the right lower quadrant. The appendix is normal. ABDOMINAL WALL: Within normal limits. RETROPERITONEUM: There is no lymphadenopathy. BLADDER: No wall thickening or mass. REPRODUCTIVE: Within normal limits. INGUINAL: There is no lymphadenopathy or hernia. MUSCULOSKELETAL: Screws are seen through both hips. Severe arthritic changes of the right hip with deformity of the hu meral head.. CONCLUSION: 1. Minimal stranding right lower quadrant of uncertain etiology. Normal appendix. 2. No dilated bowel loops to suggest obstruction. 3. Right renal cyst. 4. Tiny pleural effusions and bibasilar densities likely atelectasis. Yandel Katz MD on September 07, 2016 at 10:09 Board Certified Radiologist. This report was verified electronically.
[2016-09-07 12:00] VITALS: BP 119/62; PULSE 78; RESP 18; TEMP 97.9; O2SAT 96
--- NOTE | 2016-09-07 15:44 | HHI.PR ---
Subjective Remarks Pt watching the clock and requesting percocet with zofran. Otherwise, pt denies n/v. Objective Vitals Vital Signs Date Time Temp Pulse Resp B/P Pulse Ox O2 Delivery O2 Flow Rate FiO2 09/07/16 12:00 97.9 78 18 119/62 96 09/07/16 08:00 99.3 69 18 143/66 96 09/06/16 23:40 98.1 63 17 127/55 95 09/06/16 20:20 98.2 71 18 125/59 96 09/06/16 16:00 97.3 76 18 112/58 96 09/06/16 09/06/16 09/07/16 14:59 22:59 06:59 Intake Total 600 ml 460 ml Output Total 750 ml 450 ml Balance -150 ml 10 ml Intake Oral 600 ml 460 ml Output Urine Total 750 ml 450 ml # Bowel Movements 0 0 Result Diagram: 09/07/16 0737 09/07/16 0737 Imaging Last 24 hours Impressions Chest X-Ray 09/05/16 191 Signed Impressions: Service Date/Time: Monday, September 05, 2016 19:28 - CONCLUSION: No acute cardiopulmonary disease. Oneal Bridges MD Objective Remarks GENERAL: This is a well-nourished, well-developed patient, in no apparent distress. CARDIOVASCULAR: Regular rate and rhythm without murmurs, gallops, or rubs. RESPIRATORY: Clear to auscultation. Breath sounds equal bilaterally. No wheezes , rales, or rhonchi. GASTROINTESTINAL: Abdomen soft, non-tender, nondistended. Normal active bowel sounds MUSCULOSKELETAL: Extremities without clubbing, cyanosis, or edema. NEURO: Alert & Oriented x4 to person, place, time, situation. Moves all ext x4 A/P Problem List: (1) GREGG (acute kidney injury) Status: Acute Plan: Pt is 56 yo with severe back and right hip pain "OA" says he was trying to get disability for the above 5-6 days ago began developing mid abdomen pains relieved with vomiting and made worse with eating GREGG on presentation. possible prerenal from n/v poor po... ...hydrate and if no better then eval for other etiologies. Esophagitis due to vomiting - CT A/P (09/07/16) --> NO acute finding - appreciate input from Nephrology - continue IVFs - hold DAVID & diuretic - repeat BMP in AM (2) Abdominal pain Status: Acute Plan: - see above (3) Vomiting Status: Acute Plan: - see above (4) Hip osteoarthritis Status: Chronic Plan: - obtain x-ray (5) Hypertension Status: Chronic Plan: continue home meds (6) CAD (coronary artery disease) Status: Chronic Plan: cabg x 3 cont home meds Problem Qualifiers (1) Abdominal pain: Qualified Code: R10.9 - Abdominal pain, unspecified location Temo Alvarado DO Sep 07, 2016 15:44
[2016-09-07 16:00] VITALS: BP 142/68; PULSE 68; RESP 18; TEMP 98.4; O2SAT 94
--- NOTE | 2016-09-07 16:48 | HHI.NPPN ---
Subjective History of Present Illness 56 year old with ARF with N/V Review of Systems General Constitutional: Fatigue Objective Data Data 09/06/16 09/07/16 19:00 07:00 Intake Total 600 ml 460 ml Output Total 750 ml 450 ml Balance -150 ml 10 ml Intake Oral 600 ml 460 ml Output Urine Total 750 ml 450 ml # Bowel Movements 0 0 Vital Signs Date Time Temp Pulse Resp B/P Pulse Ox O2 Delivery O2 Flow Rate FiO2 09/07/16 12:00 97.9 78 18 119/62 96 09/07/16 08:00 99.3 69 18 143/66 96 09/06/16 23:40 98.1 63 17 127/55 95 09/06/16 20:20 98.2 71 18 125/59 96 -: 09/07/16 0737 09/07/16 0737 Physical Exam General Appearance: Well Developed, Well Nourished Pulmonary Resp Exam: Clear Bilaterally, Breath Sounds Equal Cardiology CV Exam: Regular, Normal Sinus Rhythm Gastrointestinal/Abdomen GI Exam: Soft, Non-Tender, Bowel Sounds Present Extremeties Extremities Exam: No Edema Assessment/Plan Problem List: (1) Acute renal failure Plan: He is doing better ct abd non specific stranding rt side no appedicitis k 5.6 cr 5.3 give kayexalate continue to hydrate Avoid dye studies are gadolinium studies (2) Abdominal pain Plan: Been evaluated GI consulted (3) Vomiting Plan: Due to GI upset (4) Dehydration Plan: Hydration ordered Problem Qualifiers (1) Abdominal pain: Qualified Code: R10.9 - Abdominal pain, unspecified location Arabella Joy MD Sep 07, 2016 16:48
[2016-09-07] MEDS ORDERED: SODIUM POLYSTYRENE SULFONATE SUSP 15 GM/60 ML CUP PO ONE ×2 (17:00)
[2016-09-07] MEDS: busPIRone HCL 5 MG TAB PO SCH (17:32)
--- NOTE | 2016-09-07 18:10 | RADRPT ---
EXAM DATE/TIME: 09/07/2016 17:47 [facility] COMPARISON: No previous studies available for comparison. INDICATIONS : Right hip pain. MEDICAL HISTORY : Cardiovascular disease. Hypertension Renal calculi. SURGICAL HISTORY : CABG. Bilateral hip pinning, age 16. ENCOUNTER: Initial ACUITY: 4 - 6 days PAIN SCORE: 10/10 LOCATION: Right hip FINDINGS: There are 3 threaded screws traversing the right femoral neck and head and 4 on the left. There is se rigo joint space narrowing with a [id number] appearance, flattening of the femoral head and subchon dral cystic changes and sclerosis on both sides of the joint on the right. There is deformity of the neck of the femur. No definite evidence for acute fracture. CONCLUSION: Severe degenerative changes and remote appearing posttraumatic changes right proximal femur. Gómez Cobb MD on September 07, 2016 at 18:07 Board Certified Radiologist. This report was verified electronically.
[2016-09-07 20:00] VITALS: BP 167/81; PULSE 81; RESP 17; TEMP 98.5; O2SAT 95
[2016-09-07 21:30] VITALS: PULSE 69
[2016-09-07] MEDS: ISOSORBIDE MONONITRATE 60 MG TAB PO SCH (21:32)
[2016-09-07] MEDS: TAMSULOSIN HCL 0.4 MG CAP PO SCH (21:32)
[2016-09-08] VITALS (9 sets, daily range): BP systolic 155–180; BP diastolic 70–87; PULSE 52–80; RESP 16–19; TEMP 97.2–99.3; O2SAT 93–96
[2016-09-08] MEDS: oxyCODONE/ACETAMINOPHEN 5 MG/325 MG TAB PO PRN ×5 (02:11→20:40)
[2016-09-08 07:18] LABS: BICARBONATE 24.5 MEQ/L (21.0-32.0); POTASSIUM 4.7 MEQ/L (3.5-5.1)
[2016-09-08] MEDS: SODIUM CHLORIDE 0.9% FLUSH 10 ML FLUSH IV FLUSH SCH ×2 (10:42→20:41)
[2016-09-08] MEDS: ASPIRIN EC 81 MG TABEC PO SCH (10:42)
[2016-09-08] MEDS: PANTOPRAZOLE SODIUM 40 MG VIAL IV PUSH SCH ×2 (10:42→20:40)
[2016-09-08] MEDS: DOCUSATE SODIUM 50 MG/SENNA 8.6 MG TAB PO SCH ×2 (10:42→20:41)
[2016-09-08] MEDS: METOPROLOL TARTRATE 100 MG TAB PO SCH (10:42)
--- NOTE | 2016-09-08 14:12 | HHI.NPPN ---
Subjective History of Present Illness 56 year old with ARF with N/V Review of Systems General Constitutional: Fatigue Objective Data Data 09/07/16 09/08/16 19:00 07:00 Intake Total 1040 ml 1900 ml Output Total 1000 ml Balance 40 ml 1900 ml Intake Oral 1040 ml 960 ml IV Total 940 ml Output Urine Total 1000 ml # Voids 1 9 # Bowel Movements 1 7 Vital Signs Date Time Temp Pulse Resp B/P Pulse Ox O2 Delivery O2 Flow Rate FiO2 09/08/16 12:00 97.2 62 17 164/75 96 09/08/16 08:00 98.7 75 18 160/85 96 09/08/16 04:00 97.4 66 17 156/83 94 09/08/16 01:40 62 09/08/16 00:00 97.5 80 16 155/70 93 09/07/16 21:30 69 09/07/16 20:00 98.5 81 17 167/81 95 09/07/16 16:00 98.4 68 18 142/68 94 -: 09/07/16 0737 09/08/16 0619 Physical Exam General Appearance: Well Developed, Well Nourished Pulmonary Resp Exam: Clear Bilaterally, Breath Sounds Equal Cardiology CV Exam: Regular, Normal Sinus Rhythm Gastrointestinal/Abdomen GI Exam: Soft, Non-Tender, Bowel Sounds Present Extremeties Extremities Exam: No Edema Assessment/Plan Problem List: (1) Acute renal failure Plan: He is c/o bloating SOB ct abd non specific stranding rt side no appendicitis k 4.7 cr 5.1 slow to resolve give Lasix as SOB for bloating give Reglan for 2 days IVF decrease to 42 ml/hr (2) Abdominal pain Plan: Been evaluated (3) Vomiting Plan: Due to GI upset Problem Qualifiers (1) Abdominal pain: Qualified Code: R10.9 - Abdominal pain, unspecified location Arabella Joy MD Sep 08, 2016 14:12
[2016-09-08] MEDS ORDERED: FUROSEMIDE 40 MG/4 ML VIAL IV PUSH ONE (14:15)
[2016-09-08] MEDS: METOCLOPRAMIDE HCL 10 MG/2 ML VIAL IV PUSH SCH ×2 (14:51→21:47)
[2016-09-08] MEDS: SIMETHICONE SUSP DROPS 40 MG/0.6 ML 30 ML BTL PO PRN (14:52)
[2016-09-08] MEDS: busPIRone HCL 5 MG TAB PO SCH (16:12)
--- NOTE | 2016-09-08 16:45 | HHI.PR ---
Subjective Remarks Pt c/o SOB. Oxygen level stable on RA. Objective Vitals Vital Signs Date Time Temp Pulse Resp B/P Pulse Ox O2 Delivery O2 Flow Rate FiO2 09/08/16 12:00 97.2 62 17 164/75 96 09/08/16 08:00 98.7 75 18 160/85 96 09/08/16 04:00 97.4 66 17 156/83 94 09/08/16 01:40 62 09/08/16 00:00 97.5 80 16 155/70 93 09/07/16 21:30 69 09/07/16 20:00 98.5 81 17 167/81 95 09/07/16 09/07/16 09/08/16 15:00 23:00 07:00 Intake Total 240 ml 1536 ml 1164 ml Output Total 1000 ml Balance 240 ml 536 ml 1164 ml Intake Oral 240 ml 1280 ml 480 ml IV Total 256 ml 684 ml Output Urine Total 1000 ml # Voids 1 3 6 # Bowel Movements 0 5 3 Result Diagram: 09/07/16 0737 09/08/16 0619 Imaging Last 24 hours Impressions Chest X-Ray 09/05/161914 Signed Impressions: Service Date/Time: Monday, September 05, 2016 19:28 - CONCLUSION: No acute cardiopulmonary disease. Oneal Bridges MD Objective Remarks GENERAL: This is a well-nourished, well-developed patient, in no apparent distress. CARDIOVASCULAR: Regular rate and rhythm without murmurs, gallops, or rubs. RESPIRATORY: Clear to auscultation. Breath sounds equal bilaterally. No wheezes , rales, or rhonchi. GASTROINTESTINAL: Abdomen soft, non-tender, nondistended. Normal active bowel sounds MUSCULOSKELETAL: Extremities without clubbing, cyanosis, or edema. NEURO: Alert & Oriented x4 to person, place, time, situation. Moves all ext x4 A/P Problem List: (1) GREGG (acute kidney injury) Status: Acute Plan: - Pt is 56 yo with severe back and right hip pain "OA" - Pt states that he was trying to get disability for the above - 5-6 days prior to admission, he began developing mid abdomen pains relieved with vomiting and made worse with eating - GREGG on presentation. possible prerenal from n/v poor po... Esophagitis due to vomiting - CT A/P (09/07/16) --> NO acute finding - appreciate input from Nephrology - continue IVFs, rate slowed d/t pt complaint of SOB - pt given IV lasix by Nephrology - hold DAVID & diuretic - repeat BMP in AM - suspect pt's c/o dyspnea is related to anxiety - xanax prn - obtain 12 lead EKG - obtain CXR (2) Bradycardia Status: Acute Plan: - bradycardia with pauses noted on telemetry overnight - decrease the pt's metoprolol to 50mg BID - continue to observe on telemetry (3) Abdominal pain Status: Acute Plan: - see above (4) Vomiting Status: Acute Plan: - see above (5) Hip osteoarthritis Status: Chronic Plan: - obtain x-ray (6) Hypertension Status: Chronic Plan: continue home meds (7) CAD (coronary artery disease) Status: Chronic Plan: cabg x 3 cont home meds Problem Qualifiers (1) Abdominal pain: Qualified Code: R10.9 - Abdominal pain, unspecified location Temo Alvarado DO Sep 08, 2016 16:45
--- NOTE | 2016-09-08 17:23 | RADRPT ---
EXAM DATE/TIME: 09/08/2016 16:58 [facility] COMPARISON: No previous studies available for comparison. INDICATIONS : Short of breath. MEDICAL HISTORY : Myocardial infarction. Hypertension SURGICAL HISTORY : CABG. ENCOUNTER: Subsequent ACUITY: 4 - 6 days PAIN SCORE: 0/10 LOCATION: Bilateral chest FINDINGS: A single view of the chest demonstrates the lungs to be symmetrically aerated without evidence of mas s, infiltrate or effusion. The cardiomediastinal contours are unremarkable. Osseous structures are intact. CONCLUSION: Normal examination. Numerous clips and wire sutures CABG. 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 This report was verified electronically.
[2016-09-08] MEDS: METOPROLOL TARTRATE 50 MG TAB PO SCH (20:41)
[2016-09-08] MEDS: TAMSULOSIN HCL 0.4 MG CAP PO SCH (20:41)
[2016-09-08] MEDS: ISOSORBIDE MONONITRATE 60 MG TAB PO SCH (20:41)
[2016-09-08] MEDS: SODIUM CHLOR 0.9% 1000 ML INJ 1,000 ML IV SCH ×2 (20:42→21:43)
[2016-09-08] MEDS: ALPRAZolam 0.25 MG TAB PO PRN (21:45)
[2016-09-09] VITALS (10 sets, daily range): BP systolic 161–195; BP diastolic 66–87; PULSE 60–70; RESP 18–19; TEMP 97.4–98.9; O2SAT 95–96
[2016-09-09] MEDS: oxyCODONE/ACETAMINOPHEN 5 MG/325 MG TAB PO PRN ×6 (02:27→22:35)
[2016-09-09 06:04] LABS: BICARBONATE 27.3 MEQ/L (21.0-32.0)
[2016-09-09 06:05] LABS: POTASSIUM 4.9 MEQ/L (3.5-5.1)
[2016-09-09] MEDS: SODIUM CHLOR 0.9% 1000 ML INJ 1,000 ML IV SCH ×2 (06:10→17:17)
[2016-09-09] MEDS: METOCLOPRAMIDE HCL 10 MG/2 ML VIAL IV PUSH SCH ×3 (06:11→22:35)
[2016-09-09] MEDS: ALPRAZolam 0.25 MG TAB PO PRN ×3 (06:13→18:36)
--- NOTE | 2016-09-09 09:36 | EKG ---
Date Performed: 09/08/2016 Time Performed: 17:20:21 PTAGE: 56 years EKG: Sinus rhythm WITH FIRST DEGREE AV BLOCK POSSIBLE LEFT ATRIAL ENLARGEMENT ABNORMAL ECG PREVIOUS TRACING : 09/05/2016 19.13 DOCTOR: Richi Casas Interpretating Date/Time 09/09/2016 09:34:53
[2016-09-09] MEDS: DOCUSATE SODIUM 50 MG/SENNA 8.6 MG TAB PO SCH ×2 (10:10→20:02)
[2016-09-09] MEDS: ASPIRIN EC 81 MG TABEC PO SCH (10:10)
[2016-09-09] MEDS: METOPROLOL TARTRATE 50 MG TAB PO SCH (10:10)
[2016-09-09] MEDS: PANTOPRAZOLE SODIUM 40 MG VIAL IV PUSH SCH ×2 (10:11→20:02)
[2016-09-09] MEDS: SODIUM CHLORIDE 0.9% FLUSH 10 ML FLUSH IV FLUSH SCH ×2 (10:11→20:03)
[2016-09-09] MEDS: SIMETHICONE SUSP DROPS 40 MG/0.6 ML 30 ML BTL PO PRN (10:13)
[2016-09-09] MEDS: busPIRone HCL 5 MG TAB PO SCH (14:39)
--- NOTE | 2016-09-09 15:53 | HHI.PR ---
Subjective Remarks No new complaints. Objective Vitals Vital Signs Date Time Temp Pulse Resp B/P Pulse Ox O2 Delivery O2 Flow Rate FiO2 09/09/16 12:00 98.9 67 18 181/87 95 09/09/16 11:11 16 09/09/16 08:00 98.0 69 18 164/86 95 09/09/16 04:04 97.7 62 18 172/82 96 09/09/16 00:02 97.4 61 18 161/69 95 09/08/16 23:00 52 09/08/16 20:58 98.9 76 19 180/87 96 09/08/16 20:00 76 09/08/16 16:00 99.3 65 18 165/86 94 09/08/16 09/08/16 09/09/16 14:59 22:59 06:59 Intake Total 2662 ml 1346 ml Output Total 1450 ml 775 ml Balance 1212 ml 571 ml Intake Oral 1200 ml 500 ml IV Total 1462 ml 846 ml Output Urine Total 1450 ml 775 ml # Bowel Movements 1 0 Result Diagram: 09/07/16 0737 09/09/16 0511 Imaging Last 24 hours Impressions Chest X-Ray 09/05/161914 Signed Impressions: Service Date/Time: Monday, September 05, 2016 19:28 - CONCLUSION: No acute cardiopulmonary disease. Oneal Bridges MD Objective Remarks GENERAL: This is a well-nourished, well-developed patient, in no apparent distress. CARDIOVASCULAR: Regular rate and rhythm without murmurs, gallops, or rubs. RESPIRATORY: Clear to auscultation. Breath sounds equal bilaterally. No wheezes , rales, or rhonchi. GASTROINTESTINAL: Abdomen soft, non-tender, nondistended. Normal active bowel sounds MUSCULOSKELETAL: Extremities without clubbing, cyanosis, or edema. NEURO: Alert & Oriented x4 to person, place, time, situation. Moves all ext x4 A/P Problem List: (1) GREGG (acute kidney injury) Status: Acute Plan: - Pt is 56 yo with severe back and right hip pain "OA" - Pt states that he was trying to get disability for the above - 5-6 days prior to admission, he began developing mid abdomen pains relieved with vomiting and made worse with eating - GREGG on presentation. possible prerenal from n/v poor po... Esophagitis due to vomiting - CT A/P (09/07/16) --> NO acute finding - appreciate input from Nephrology - continue IVFs - Cr improving 5.52 (09/06/16), 4.28 (09/09/16) - hold DAVID & diuretic - repeat BMP in AM - suspect pt's c/o dyspnea is related to anxiety - xanax prn - obtain 12 lead EKG --> no ischemia - CXR (09/09/16) --> no acute findings. (2) Bradycardia Status: Acute Plan: - improving - bradycardia improving but still with some pauses - stop metoprolol - if pauses continue once metoprolol stopped, then will consult cardiology - continue to observe on telemetry (3) Abdominal pain Status: Acute Plan: - see above (4) Vomiting Status: Acute Plan: - see above (5) Hip osteoarthritis Status: Chronic Plan: - obtain x-ray (6) Hypertension Status: Chronic Plan: - metoprolol decreased to 50mg BID - start Procardia XL 60mg daily (7) CAD (coronary artery disease) Status: Chronic Plan: cabg x 3 cont home meds Problem Qualifiers (1) Abdominal pain: Qualified Code: R10.9 - Abdominal pain, unspecified location Temo Alvarado DO Sep 09, 2016 15:53
[2016-09-09] MEDS ORDERED: NIFEdipine 60 MG SUSTAINED RELEASE TAB PO SCH (16:00)
--- NOTE | 2016-09-09 17:00 | HHI.NPPN ---
Subjective History of Present Illness 56 year old with ARF Review of Systems General Constitutional: Fatigue Objective Data Data 09/08/16 09/09/16 19:00 07:00 Intake Total 480 ml 3528 ml Output Total 950 ml 1275 ml Balance -470 ml 2253 ml Intake Oral 480 ml 1220 ml IV Total 2308 ml Output Urine Total 950 ml 1275 ml # Bowel Movements 0 1 Vital Signs Date Time Temp Pulse Resp B/P Pulse Ox O2 Delivery O2 Flow Rate FiO2 09/09/16 16:00 98.5 68 18 173/81 95 09/09/16 12:00 98.9 67 18 181/87 95 09/09/16 11:11 16 09/09/16 08:00 98.0 69 18 164/86 95 09/09/16 04:04 97.7 62 18 172/82 96 09/09/16 00:02 97.4 61 18 161/69 95 09/08/16 23:00 52 09/08/16 20:58 98.9 76 19 180/87 96 09/08/16 20:00 76 -: 09/07/16 0737 09/09/16 0511 Physical Exam General Appearance: Well Developed, Well Nourished Pulmonary Resp Exam: Clear Bilaterally, Breath Sounds Equal Cardiology CV Exam: Regular, Normal Sinus Rhythm Gastrointestinal/Abdomen GI Exam: Soft, Non-Tender, Bowel Sounds Present Extremeties Extremities Exam: No Edema Assessment/Plan Problem List: (1) Acute renal failure Plan: ARF improved ct abd non specific stranding rt side no appendicitis k 4.9 cr 4.2 resolving ATN for bloating give Reglan for 2 days Improved ? gastroparesis/ may need to take pro motility agents off IVF (2) Abdominal pain Plan: Been evaluated (3) Vomiting Plan: Due to GI upset Problem Qualifiers (1) Abdominal pain: Qualified Code: R10.9 - Abdominal pain, unspecified location Arabella Joy MD Sep 09, 2016 16:59
[2016-09-09] MEDS: NIFEdipine 60 MG SUSTAINED RELEASE TAB PO SCH (17:16)
[2016-09-09] MEDS: TAMSULOSIN HCL 0.4 MG CAP PO SCH (20:02)
[2016-09-09] MEDS: ISOSORBIDE MONONITRATE 60 MG TAB PO SCH (20:02)
[2016-09-10] VITALS (7 sets, daily range): BP systolic 129–165; BP diastolic 53–73; PULSE 69–93; RESP 16–18; TEMP 96.9–98.5; O2SAT 93–95
[2016-09-10] MEDS: ALPRAZolam 0.25 MG TAB PO PRN ×5 (00:57→23:44)
[2016-09-10] MEDS: oxyCODONE/ACETAMINOPHEN 5 MG/325 MG TAB PO PRN ×6 (02:42→22:34)
[2016-09-10] MEDS: SODIUM CHLOR 0.9% 1000 ML INJ 1,000 ML IV SCH ×3 (02:43→23:38)
[2016-09-10] MEDS: METOCLOPRAMIDE HCL 10 MG/2 ML VIAL IV PUSH SCH ×2 (06:32→11:23)
[2016-09-10] MEDS: ASPIRIN EC 81 MG TABEC PO SCH (07:56)
[2016-09-10] MEDS: NIFEdipine 60 MG SUSTAINED RELEASE TAB PO SCH (07:56)
[2016-09-10] MEDS: SODIUM CHLORIDE 0.9% FLUSH 10 ML FLUSH IV FLUSH SCH ×2 (07:57→20:33)
[2016-09-10] MEDS: DOCUSATE SODIUM 50 MG/SENNA 8.6 MG TAB PO SCH ×2 (07:57→20:32)
[2016-09-10] MEDS: PANTOPRAZOLE SODIUM 40 MG VIAL IV PUSH SCH ×2 (07:57→20:33)
[2016-09-10] MEDS: busPIRone HCL 5 MG TAB PO SCH (13:56)
--- NOTE | 2016-09-10 15:00 | HHI.NPPN ---
Subjective History of Present Illness 56 year old with ARF Review of Systems General Constitutional: Fatigue Objective Data Data 09/09/16 09/10/16 19:00 07:00 Intake Total 520 ml 2817 ml Output Total 775 ml 1300 ml Balance -255 ml 1517 ml Intake Oral 520 ml 840 ml IV Total 1977 ml Output Urine Total 775 ml 1300 ml # Voids 2 2 # Bowel Movements 1 2 Vital Signs Date Time Temp Pulse Resp B/P Pulse Ox O2 Delivery O2 Flow Rate FiO2 09/10/16 11:23 96.9 88 16 149/53 93 09/10/16 09:54 93 09/10/16 08:00 97.3 91 18 150/65 93 09/10/16 03:46 97.4 69 18 162/67 95 09/09/16 23:58 98.4 68 18 173/66 96 09/09/16 23:00 60 09/09/16 21:10 174/79 09/09/16 20:00 61 09/09/16 19:07 98.6 70 19 195/82 95 09/09/16 16:00 98.5 68 18 173/81 95 -: 09/07/16 0737 09/09/16 0511 Physical Exam General Appearance: Well Developed, Well Nourished Pulmonary Resp Exam: Clear Bilaterally, Breath Sounds Equal Cardiology CV Exam: Regular, Normal Sinus Rhythm Gastrointestinal/Abdomen GI Exam: Soft, Non-Tender, Bowel Sounds Present Extremeties Extremities Exam: No Edema Assessment/Plan Problem List: (1) Acute renal failure Plan: ARF improved k 4.9 cr 4.2 resolving ATN Improved ? gastroparesis/ may need to take pro motility agents dc IV Reglan OK to dc by am From Nephrology point of view if Cr continues to improve can stop IVF (2) Abdominal pain Plan: Been evaluated (3) Vomiting Plan: Due to GI upset Problem Qualifiers (1) Abdominal pain: Qualified Code: R10.9 - Abdominal pain, unspecified location Arabella Joy MD Sep 10, 2016 15:00
--- NOTE | 2016-09-10 16:37 | HHI.PR ---
Subjective Remarks No new complaints. Objective Vitals Vital Signs Date Time Temp Pulse Resp B/P Pulse Ox O2 Delivery O2 Flow Rate FiO2 09/10/16 15:46 98.5 91 18 129/62 93 09/10/16 11:23 96.9 88 16 149/53 93 09/10/16 09:54 93 09/10/16 08:00 97.3 91 18 150/65 93 09/10/16 03:46 97.4 69 18 162/67 95 09/09/16 23:58 98.4 68 18 173/66 96 09/09/16 23:00 60 09/09/16 21:10 174/79 09/09/16 20:00 61 09/09/16 19:07 98.6 70 19 195/82 95 09/09/16 09/09/16 09/10/16 15:00 23:00 07:00 Intake Total 520 ml 1548 ml 1269 ml Output Total 775 ml 300 ml 1000 ml Balance -255 ml 1248 ml 269 ml Intake Oral 520 ml 360 ml 480 ml IV Total 1188 ml 789 ml Output Urine Total 775 ml 300 ml 1000 ml # Voids 2 2 # Bowel Movements 1 2 0 Result Diagram: 09/07/16 0737 09/09/16 0511 Imaging Last 24 hours Impressions Chest X-Ray 09/05/161914 Signed Impressions: Service Date/Time: Monday, September 05, 2016 19:28 - CONCLUSION: No acute cardiopulmonary disease. Oneal Bridges MD Objective Remarks GENERAL: This is a well-nourished, well-developed patient, in no apparent distress. CARDIOVASCULAR: Regular rate and rhythm without murmurs, gallops, or rubs. RESPIRATORY: Clear to auscultation. Breath sounds equal bilaterally. No wheezes , rales, or rhonchi. GASTROINTESTINAL: Abdomen soft, non-tender, nondistended. Normal active bowel sounds MUSCULOSKELETAL: Extremities without clubbing, cyanosis, or edema. NEURO: Alert & Oriented x4 to person, place, time, situation. Moves all ext x4 A/P Problem List: (1) GREGG (acute kidney injury) Status: Acute Plan: - Pt is 56 yo with severe back and right hip pain "OA" - Pt states that he was trying to get disability for the above - 5-6 days prior to admission, he began developing mid abdomen pains relieved with vomiting and made worse with eating - GREGG on presentation. possible prerenal from n/v poor po... Esophagitis due to vomiting - CT A/P (09/07/16) --> NO acute finding - appreciate input from Nephrology - continue IVFs - Cr improving 5.52 (09/06/16), 4.28 (09/09/16), - hold DAVID & diuretic - repeat BMP in AM - suspect pt's c/o dyspnea is related to anxiety - xanax prn - obtain 12 lead EKG --> no ischemia - CXR (09/09/16) --> no acute findings. 09/10/16 - pt interviewed and examined - continue current treatment plan - repeat BMP in AM (2) Bradycardia Status: Acute Plan: - improving - bradycardia improving but still with some pauses - stop metoprolol - if pauses continue once metoprolol stopped, then will consult cardiology - continue to observe on telemetry (3) Abdominal pain Status: Acute Plan: - see above (4) Vomiting Status: Acute Plan: - see above (5) Hip osteoarthritis Status: Chronic Plan: - obtain x-ray (6) Hypertension Status: Chronic Plan: - metoprolol decreased to 50mg BID - start Procardia XL 60mg daily (7) CAD (coronary artery disease) Status: Chronic Plan: cabg x 3 cont home meds Problem Qualifiers (1) Abdominal pain: Qualified Code: R10.9 - Abdominal pain, unspecified location Temo Alvarado DO Sep 10, 2016 16:37
[2016-09-10] MEDS: TAMSULOSIN HCL 0.4 MG CAP PO SCH (20:32)
[2016-09-10] MEDS: ISOSORBIDE MONONITRATE 60 MG TAB PO SCH (20:32)
[2016-09-11] VITALS: BP 156/74; PULSE 93; RESP 16; TEMP 98.5; O2SAT 95
[2016-09-11] MEDS: oxyCODONE/ACETAMINOPHEN 5 MG/325 MG TAB PO PRN ×4 (03:24→15:50)
[2016-09-11 04:00] VITALS: BP 151/74; PULSE 87; RESP 17; TEMP 97.5; O2SAT 95
[2016-09-11] MEDS: ALPRAZolam 0.25 MG TAB PO PRN ×2 (06:51→12:29)
[2016-09-11] MEDS: NIFEdipine 60 MG SUSTAINED RELEASE TAB PO SCH (07:24)
[2016-09-11] MEDS: PANTOPRAZOLE SODIUM 40 MG VIAL IV PUSH SCH (07:24)
[2016-09-11] MEDS: ASPIRIN EC 81 MG TABEC PO SCH (07:25)
[2016-09-11] MEDS: SODIUM CHLOR 0.9% 1000 ML INJ 1,000 ML IV SCH (07:25)
[2016-09-11] MEDS: DOCUSATE SODIUM 50 MG/SENNA 8.6 MG TAB PO SCH (07:25)
[2016-09-11 07:27] LABS: BICARBONATE 21.8 MEQ/L (21.0-32.0); POTASSIUM 3.6 MEQ/L (3.5-5.1)
[2016-09-11 07:31] VITALS: PULSE 77
[2016-09-11] MEDS: SODIUM CHLORIDE 0.9% FLUSH 10 ML FLUSH IV FLUSH SCH (07:31)
[2016-09-11 08:00] VITALS: BP 142/67; PULSE 62; RESP 20; TEMP 98.3; O2SAT 94
[2016-09-11 12:07] VITALS: BP 162/73; PULSE 109; RESP 20; TEMP 98.1; O2SAT 94
--- NOTE | 2016-09-11 12:46 | HHI.NPPN ---
Subjective History of Present Illness 56 year old with ARF Review of Systems General Constitutional: Fatigue Objective Data Data 09/10/16 09/11/16 19:00 07:00 Intake Total 1144 ml 2288 ml Output Total 1475 ml Balance -331 ml 2288 ml Intake Oral 600 ml 480 ml IV Total 544 ml 1808 ml Output Urine Total 1475 ml # Voids 2 # Bowel Movements 0 0 Vital Signs Date Time Temp Pulse Resp B/P Pulse Ox O2 Delivery O2 Flow Rate FiO2 09/11/16 12:07 98.1 109 20 162/73 94 09/11/16 12:07 Room Air 09/11/16 08:00 98.3 62 20 142/67 94 09/11/16 07:31 77 09/11/16 07:31 Room Air 09/11/16 04:24 18 09/11/16 04:00 97.5 87 17 151/74 95 09/11/16 01:30 Room Air 09/11/16 00:00 98.5 93 16 156/74 95 09/10/16 20:15 92 09/10/16 19:00 98.3 92 18 165/73 94 09/10/16 15:46 98.5 91 18 129/62 93 -: 09/07/16 0737 09/11/16 0530 Physical Exam General Appearance: Well Developed, Well Nourished Pulmonary Resp Exam: Clear Bilaterally, Breath Sounds Equal Cardiology CV Exam: Regular, Normal Sinus Rhythm Gastrointestinal/Abdomen GI Exam: Soft, Non-Tender, Bowel Sounds Present Extremeties Extremities Exam: No Edema Assessment/Plan Problem List: (1) Acute renal failure Plan: ARF improved k 3.6 cr 2.56 resolving ATN OK to dc by am From Nephrology point of view fu as out patient (2) Abdominal pain Plan: Been evaluated (3) Vomiting Plan: Due to GI upset Problem Qualifiers (1) Abdominal pain: Qualified Code: R10.9 - Abdominal pain, unspecified location Arabella Joy MD Sep 11, 2016 12:46
[2016-09-11] MEDS: busPIRone HCL 5 MG TAB PO SCH (15:50)
[2016-09-11 15:52] VITALS: BP 163/75; PULSE 97; RESP 19; TEMP 98.2; O2SAT 96
[2016-09-11] MEDS ORDERED: ALPR.25 PO (16:14)
[2016-09-11] MEDS ORDERED: OXYC1TAB63 PO (16:14)
[2016-09-11] MEDS ORDERED: NIFE60TA8 PO (16:14)
--- NOTE | 2016-09-11 16:16 | HHI.DCPOC ---
Discharge Care Plan Diagnosis: (1) Acute renal failure (2) Dehydration Goals to Promote Your Health * To prevent worsening of your condition and complications * To maintain your health at the optimal level Directions to Meet Your Goals Take your medications as prescribed Follow your dietary instruction Follow activity as directed Keep your appointments as scheduled Take your immunizations and boosters as scheduled If your symptoms worsen call your PCP, if no PCP go to Urgent Care Center or Emergency Room Smoking is Dangerous to Your Health. Avoid second hand smoke Call the 24-hour hour crisis hotline for domestic abuse at Temo Alvarado DO Sep 11, 2016 16:16
--- NOTE | 2016-09-11 16:22 | HHI.DS ---
Discharge Summary Admission Date Sep 05, 2016 at 21:31 Discharge Date: Sep 11, 2016 Admitting Diagnosis acute kidney injury, vomiting, chest pain (1) GREGG (acute kidney injury) Diagnosis: Principal (2) Abdominal pain Diagnosis: Principal (3) Vomiting Diagnosis: Principal (4) Hip osteoarthritis Diagnosis: Secondary (5) Hypertension Diagnosis: Secondary (6) CAD (coronary artery disease) Diagnosis: Secondary Brief History So 56-year-old man who presents to the emergency department complaining of abdominal bloating and vomiting that started ongoing for the past 4-5 days. He also started getting pressure-like discomfort in his chest intermittently, worse with nausea and vomiting, worse when he moves around. States he vomited 3 times today. He hasn't really been able to eat or drink. He's had a little bit of loose stool. His last bowel movement was yesterday was soft and loose. Is no history of abdominal surgeries. He does have a history of CAD with previous CABG in 2009. He also said kidney stones in the past and with this current problem has had some trouble urinating. He is on chronic opiates for hip and back pain. He does not take NSAIDs regularly but did take 2 motrin. He does not drink alcohol regularly. He otherwise has been feeling generally well and healthy prior to the onset of these symptoms. CBC/BMP: 09/07/16 0737 09/11/16 0530 Significant Findings Laboratory Tests Test 09/09/16 09/11/16 05:11 05:30 Blood Urea Nitrogen 49 MG/DL (7-18) 30 MG/DL (7-18) Creatinine 4.28 MG/DL 2.56 MG/DL (0.60-1.30) (0.60-1.30) Estimat Glomerular Filtration 15 ML/MIN (>89) 26 ML/MIN (>89) Rate Calcium Level 8.2 MG/DL 8.0 MG/DL (8.5-10.1) (8.5-10.1) Phosphorus Level 5.3 MG/DL (2.5-4.9) Albumin 2.9 GM/DL (3.4-5.0) Chloride Level 109 MEQ/L (98-107) PE at Discharge GENERAL: This is a well-nourished, well-developed patient, in no apparent distress. CARDIOVASCULAR: Regular rate and rhythm without murmurs, gallops, or rubs. RESPIRATORY: Clear to auscultation. Breath sounds equal bilaterally. No wheezes , rales, or rhonchi. GASTROINTESTINAL: Abdomen soft, non-tender, nondistended. Normal active bowel sounds MUSCULOSKELETAL: Extremities without clubbing, cyanosis, or edema. NEURO: Alert & Oriented x4 to person, place, time, situation. Moves all ext x4 Hospital Course (1) GREGG (acute kidney injury) Status: Acute Plan: - Pt is 56 yo with severe back and right hip pain "OA" - Pt states that he was trying to get disability for the above - 5-6 days prior to admission, he began developing mid abdomen pains relieved with vomiting and made worse with eating - GREGG on presentation. possible prerenal from n/v poor po... Esophagitis due to vomiting - CT A/P (09/07/16) --> NO acute finding - appreciate input from Nephrology - continue IVFs - Cr improving 5.52 (09/06/16), 4.28 (09/09/16), 2.56 (09/11/16) - hold DAVID & diuretic, for now - suspect pt's c/o dyspnea is related to anxiety - xanax prn with improvement in pt's SOB - obtain 12 lead EKG --> no ischemia - CXR (09/09/16) --> no acute findings. - discharge to home today, see orders - repeat BMP outpt on 09/14/16, results to Dr. Osorio - f/u with Dr. Osorio in 1 week - f/u with Dr. Arabella Joy in 2 weeks (2) Bradycardia Status: Acute Plan: - improving - bradycardia improving but still with some pauses - stopped metoprolol - bradycardia and pauses resolved with stopping metoprolol - consider resuming metoprolol outpt at a lower dose - observe HR and blood pressure readings at home and record. (3) Abdominal pain Status: Acute Plan: - see above (4) Vomiting Status: Acute Plan: - see above (5) Hip osteoarthritis Status: Chronic Plan: - obtain x-ray (6) Hypertension Status: Chronic Plan: - metoprolol decreased to 50mg BID - start Procardia XL 60mg BID - keep home bp log (7) CAD (coronary artery disease) Status: Chronic Plan: cabg x 3 cont home meds Pt Condition on Discharge: Stable Discharge Disposition: Discharge Home Discharge Instructions DIET: Follow Instructions for: Heart Healthy Diet Activities you can perform: Regular-No Restrictions Activities to Avoid: Strenuous Activity Follow up Referrals: Nephrology - [address] Arabella Joy PCP Follow-up - [address] Bradley Osorio New Medications: Alprazolam (Xanax) 0.25 Mg Tab 0.25 MG PO Q6H PRN ANXIETY #20 Ref 0 TAB Nifedipine ER 24 HR (Nifedipine ER 24 HR) 60 Mg Tab 60 MG PO BID htn #60 Ref 0 TAB Oxycodone-Acetaminophen (Oxycodone-Acetaminophen) 5-325 mg Tab 1 TAB PO Q4H PRN pain #12 Ref 0 TAB Continued Medications: Aspirin DR (Aspir-81) 81 Mg Tabdr 81 MG PO DAILY Buspirone (Buspirone) 5 Mg Tab 5 MG PO DAILY@1600 Anxiety Ref 0 TAB Isosorbide Mononitrate ER (Isosorbide Mononitrate ER) 60 Mg Tab 60 MG PO HS Prevent Chest Pain #30 Ref 0 TAB Metoprolol Tartrate (Metoprolol Tartrate) 100 Mg Tab 100 MG PO BID #60 Ref 0 TAB Nitroglycerin SL (Nitroglycerin SL) 0.4 Mg Subl 0.4 MG SL DIRECTED ONE TABLET UNDER THE TONGUE NEEDED FOR CHEST PAIN, MAY REPEAT EVERY FIVE MINUTES FOR A TOTAL OF 3 DOSES OR CALL 911 IF NO RELIEF PRN CHEST PAIN #100 Ref 0 TAB.SL Pravastatin (Pravastatin) 40 Mg Tab 40 MG PO DAILY Cholesterol Management #30 Ref 0 TAB Tamsulosin (Tamsulosin) 0.4 Mg Cap 0.4 MG PO HS Manage Prostate Problems #30 Ref 0 CAP Discontinued Medications: Alprazolam (Xanax) 0.25 Mg Tab 0.25 MG PO HS PRN ANXIETY Ref 0 TAB Enalapril (Enalapril) 10 Mg Tab 10 MG PO BID #60 Ref 0 TAB Furosemide (Lasix) 40 Mg Tab 40 MG PO DAILY #30 Ref 0 TAB Furosemide (Lasix) 20 Mg Tab 20 MG PO DAILY@1600 PRN EDEMA #30 Ref 0 TAB [place]-3 Fatty Acids (Fish Oil 1000 mg) 1 Cap Cap 2000 MG PO DAILY Oxycodone-Acetaminophen (Percocet) 5-325 mg Tab 1 TAB PO 5 TIMES A DAY PRN PAIN Ref 0 TAB Temo Alvarado DO Sep 11, 2016 16:22
== END 2016-09-11 18:34 | disposition home or self-care (01) | DRG 683 ==
LOC: NEPC 18:02 → NEDH 21:31 → N06B 23:27
PROVIDERS: ADMIT Hospitalist; ATTEND Hospitalist
DX: N17.0 Acute kidney failure with tubular necrosis (principal); N13.8 Other obstructive and reflux uropathy; I10 Essential (primary) hypertension; K31.84 Gastroparesis; E78.5 Hyperlipidemia, unspecified; E86.0 Dehydration; I25.10 Atherosclerotic heart disease of native coronary artery without angina pectoris; K20.9 Esophagitis, unspecified; M16.10 Unilateral primary osteoarthritis, unspecified hip; N40.1 Benign prostatic hyperplasia with lower urinary tract symptoms; F41.9 Anxiety disorder, unspecified; Z79.891 Long term (current) use of opiate analgesic; Z87.442 Personal history of urinary calculi; Z87.891 Personal history of nicotine dependence; Z95.1 Presence of aortocoronary bypass graft; Z96.643 Presence of artificial hip joint, bilateral
CPT/HCPCS: 71010; 73502; 74176; 76775; 80048; 80053; 80069; 81001; 83690; 83735; 84484; 85025; 85610; 85730; 87205; 93005; 96374; C9113; J1940; J2405; J2765; J7030; J7040

== ENCOUNTER 2017-07-16 12:26 | Emergency (ER) | payer OTHER ==
[~2017-07-16] VITALS: Ht 167.6 cm; Wt 105.0 kg
[~2017-07-16 12:26] MED LIST changes: +ALPR.25 PO; -BENT20TA PO; +BUSP5TAB PO; +ISOS60TA PO; -METO50TA PO; +NIFE60TA8 PO; +NITR1SUB3 SL; +OXYC1TAB63 PO; -PANT20 PO; -POTA75TA; +TAMS0.4C4 PO
[2017-07-16 12:33] VITALS: BP 158/81; PULSE 73; RESP 18; TEMP 99; O2SAT 96
[2017-07-16] MEDS ORDERED: SODIUM CHLORID 0.9% 500 ML INJ 500 ML IV ONE (13:30)
[2017-07-16] MEDS ORDERED: SODIUM CHLORIDE 0.9% FLUSH 10 ML FLUSH IVF PRN (13:30)
[2017-07-16] MEDS ORDERED: MECLIZINE HCL 25 MG TAB PO ONE (13:30)
[2017-07-16 13:53] LABS: AUTOMATED NEUTROPHIL # 4.6 TH/MM3 (1.8-7.7); BASOPHIL # 0.1 TH/MM3 (0-0.2); BASOPHIL % 0.9 % (0.0-2.0); EOSINOPHIL # 0.1 TH/MM3 (0-0.4); HEMOGLOBIN 12.6 GM/DL (13.0-17.0); LYMPH % 22.5 % (9.0-44.0); LYMPHOCYTE # 1.5 TH/MM3 (1.0-4.8); MEAN CELL VOLUME 87.7 FL (80.0-100.0); MEAN CORPUSCULAR HEMOGLOBIN 28.4 PG (27.0-34.0); MEAN CORPUSCULAR HGB CONC 32.4 % (32.0-36.0); MEAN PLATELET VOLUME 7.9 FL (7.0-11.0); MONOCYTE # 0.6 TH/MM3 (0-0.9); NEUT % 65.6 % (16.0-70.0); PLATELET COUNT 203 TH/MM3 (150-450); RED BLOOD COUNT 4.44 MIL/MM3 (4.50-5.90); RED CELL DISTRIBUTION WIDTH 13.4 % (11.6-17.2); WHITE BLOOD COUNT 6.9 TH/MM3 (4.0-11.0)
--- NOTE | 2017-07-16 13:56 | RADRPT ---
EXAM DATE: 07/16/2017 1:48 PM EDT AGE/SEX: 57 years / Male INDICATIONS: Dizzy, lightheaded. CLINICAL DATA: This is the patient's initial encounter. Patient reports that signs and symptoms have been present for 1 day and indicates a pain score of 0/10. MEDICAL/SURGICAL HISTORY: Hypertension. CABG. cardiac cath COMPARISON: [facility] [place], CHEST SINGLE AP, 09/08/2016. . FINDINGS: A single AP view of the chest demonstrates the lungs to be symmetrically aerated without evidence of mass, infiltrate or effusion. The cardiomediastinal contours are unremarkable. Osseous structures a re intact. Intact median sternotomy wires. Coronary ostial rings characteristic of prior CABG. CONCLUSION: No acute cardiopulmonary process. Electronically signed by: Avelino Bashir MD 07/16/2017 1:55 PM EDT
[2017-07-16 14:02] VITALS: BP 158/78; PULSE 82; RESP 16; O2SAT 95
[2017-07-16 14:02] LABS: CHLORIDE 103 MEQ/L (98-107); SODIUM (NA) 137 MEQ/L (136-145)
[2017-07-16 14:04] LABS: PROTHROMBIN TIME - PATIENT 10.1 SEC (9.8-11.6)
[2017-07-16 14:05] LABS: CALCIUM 8.8 MG/DL (8.5-10.1)
[2017-07-16 14:06] LABS: ALBUMIN 3.9 GM/DL (3.4-5.0); BICARBONATE 29.2 MEQ/L (21.0-32.0); BLOOD UREA NITROGEN 17 MG/DL (7-18); GLUCOSE,RANDOM 98 MG/DL (74-106); MAGNESIUM 2.1 MG/DL (1.5-2.5)
[2017-07-16 14:09] LABS: ALT (GPT) 32 U/L (12-78); AST (GOT) 15 U/L (15-37); GLOMERULAR FILTRATION RATE 69 ML/MIN (>89)
[2017-07-16 14:10] LABS: TOTAL BILIRUBIN ADULT 0.4 MG/DL (0.2-1.0)
[2017-07-16 14:12] LABS: ALKALINE PHOSPHATASE 127 U/L (45-117)
[2017-07-16] MEDS ORDERED: FURO40TA PO (14:12)
[2017-07-16] MEDS ORDERED: METO5TAB PO (14:12)
[2017-07-16] MEDS ORDERED: POTA1TAB4 PO (14:12)
[2017-07-16] MEDS ORDERED: METO50TA PO (14:12)
[2017-07-16] MEDS ORDERED: LISI10TA3 PO (14:12)
[2017-07-16] MEDS ORDERED: OMEGCAP PO (14:12)
[2017-07-16] MEDS ORDERED: MAGN400T2 PO (14:12)
[2017-07-16] MEDS ORDERED: DICL75TA PO (14:12)
[2017-07-16 14:14] LABS: TROPONIN I LESS THAN 0.02 NG/ML (0.02-0.05)
--- NOTE | 2017-07-16 14:20 | PD ---
HPI Chief Complaint: Dizziness Time Seen by Provider: 12:59 Travel History International Travel<30 days: No Contact w/Intl Traveler<30days: No Traveled to known affect area: No History of Present Illness HPI Patient is a 57-year-old male with a history of coronary artery disease presents emergency department for about a weeks worth history of abdominal cramping and then dizziness which onset this morning. Patient also states he feels somewhat like he is going to pass out. States that it gets worse when he moves his head side to side, states is never had symptoms like this before. He is worried that given his history of heart surgery but he wanted to make sure his symptoms are not coming from the heart. He states he had a stress test last year which was negative, he is followed by bioinformatics analyst and has another appointment coming up in about 6 months. He denies any chest pain shortness of breath back pain arm pain jaw pain. No nausea no vomiting no diarrhea no constipation. He states symptoms are mild, duration as above, associated signs symptoms and context as above. PFSH Past Medical History Arthritis: Yes Asthma: No Autoimmune Disease: No Blood Disorders: No Anxiety: No Depression: Yes Heart Rhythm Problems: No Cancer: No Cardiac Catheterization: Yes Cardiovascular Problems: Yes (HTN) High Cholesterol: Yes Chemotherapy: No Chest Pain: Yes Congestive Heart Failure: No COPD: No Cerebrovascular Accident: No Diabetes: No Diminished Hearing: No Endocrine: No Gastrointestinal Disorders: No GERD: No Glaucoma: No Genitourinary: No Headaches: Yes Hepatitis: No Hiatal Hernia: No Hypertension: Yes Immune Disorder: No Implanted Vascular Access Dvce: No Kidney Stones: Yes Musculoskeletal: Yes (R. HIP NEEDS REPAIR) Neurologic: No Psychiatric: No Reproductive: No Respiratory: No Immunizations Current: Yes Migraines: No Myocardial Infarction: Yes (03/15/09) Radiation Therapy: No Renal Failure: No Seizures: No Sickle Cell Disease: No Sleep Apnea: No Thyroid Disease: No Ulcer: No Past Surgical History Abdominal Surgery: No AICD: No Appendectomy: No Arteriovenous Shunt: No Cardiac Surgery: Yes (03/19/09) Cholecystectomy: No Coronary Artery Bypass Graft: Yes (FEBRUARY 2009) Ear Surgery: No Endocrine Surgery: No Eye Surgery: No Genitourinary Surgery: No Gynecologic Surgery: No Insulin Pump: No Joint Replacement: Yes (BILATERAL HIPS) Neurologic Surgery: No Oral Surgery: Yes (TEETH REMOVED FOR TOP DENTURES) Pacemaker: No Thoracic Surgery: No Other Surgery: Yes Social History Alcohol Use: Yes (SOCIALLY 2 months) Tobacco Use: No (QUIT 2009) Substance Use: No Allergies-Medications (Allergen,Severity, Reaction): Coded Allergies: Sulfa (Sulfonamide Antibiotics) (Unverified Allergy, Severe, RASH, VOMITING, 07/16/17) penicillin G (Unverified Allergy, Severe, RASH, VOMITING, 07/16/17) Reported Meds & Prescriptions Reported Meds & Active Scripts Active Meclizine (Meclizine HCl) 25 Mg Tab 25 Mg PO DIRECTED PRN Oxycodone-Acetaminophen 5-325 mg Tab 1 Tab PO Q4H PRN Xanax (Alprazolam) 0.25 Mg Tab 0.25 Mg PO Q6H PRN Reported Diclofenac Sodium DR (Diclofenac Sodium) 75 Mg Tabdr 75 Mg PO BID [place]-3 Fish Oil/Vitamin (Fish Oil-Cholecalciferol) 1,000-1,000 Mg Cap 1 Cap PO DAILY K-Tab (Potassium Chloride) 20 Meq Tab 20 Meq PO DAILY Magnesium Oxide 400 Mg Tab 400 Mg PO DAILY Metoclopramide (Metoclopramide HCl) 5 Mg Tab 5 Mg PO TIDAC PRN Metoprolol Tartrate 50 Mg Tab 50 Mg PO BID Lisinopril 10 Mg Tab 10 Mg PO DAILY Furosemide 40 Mg Tab 40 Mg PO DAILY Nitroglycerin SL (Nitroglycerin) 0.4 Mg Subl 0.4 Mg SL DIRECTED PRN ONE TABLET UNDER THE TONGUE NEEDED FOR CHEST PAIN, MAY REPEAT EVERY FIVE MINUTES FOR A TOTAL OF 3 DOSES OR CALL 911 IF NO RELIEF Tamsulosin (Tamsulosin HCl) 0.4 Mg Cap 0.4 Mg PO HS Isosorbide Mononitrate ER (Isosorbide Mononitrate) 60 Mg Tab 60 Mg PO HS Buspirone (Buspirone HCl) 5 Mg Tab 5 Mg PO DAILY@1600 Aspir-81 (Aspirin) 81 Mg Tabdr 81 Mg PO DAILY Pravastatin 40 Mg Tab 40 Mg PO DAILY Review of Systems Except as stated in HPI: all other systems reviewed are Neg Physical Exam Narrative GENERAL: Well-developed well-nourished overweight male in no obvious distress peer SKIN: Focused skin assessment warm/dry. HEAD: Atraumatic. Normocephalic. EYES: Pupils equal and round. No scleral icterus. No injection or drainage. ENT: No nasal bleeding or discharge. Mucous membranes pink and moist. Some ear wax in the left canal but TM visualized is normal. Right TM and canal are clear. Oropharynx clear and moist. NECK: Trachea midline. No JVD. CARDIOVASCULAR: Regular rate and rhythm. No murmur appreciated. 2+ bilateral equal pulses in all 4 extremities. RESPIRATORY: No accessory muscle use. Clear to auscultation. Breath sounds equal bilaterally. GASTROINTESTINAL: Abdomen soft, non-tender, nondistended. Hepatic and splenic margins not palpable. MUSCULOSKELETAL: No obvious deformities. No clubbing. No cyanosis. No edema. NEUROLOGICAL: Awake and alert. Cranial nerves II through XII grossly intact and nonfocal, 5 out of 5 strength in all 4 extremities, cerebellar testing negative. Ambulatory with a cane. PSYCHIATRIC: Appropriate mood and affect; insight and judgment normal. Data Data Last Documented VS Vital Signs Date Time Temp Pulse Resp B/P (MAP) Pulse Ox O2 Delivery O2 Flow Rate FiO2 07/16/17 14:42 07/16/17 14:31 82 17 96 Room Air 07/16/17 12:33 99.0 Orders Orders Electrocardiogram (07/16/17 ) Electrocardiogram (07/16/17 13:22) Ckmb (Isoenzyme) Profile (07/16/17 13:22) Complete Blood Count With Diff (07/16/17 13:22) Comprehensive Metabolic Panel (07/16/17 13:22) Magnesium (Mg) (07/16/17 13:22) Prothrombin Time / Inr (Pt) (07/16/17 13:22) Act Partial Throm Time (Ptt) (07/16/17 13:22) Troponin I (07/16/17 13:22) Chest, Single Ap (07/16/17 13:22) Ecg Monitoring (07/16/17 13:22) Iv Access Insert/Monitor (07/16/17 13:22) Oximetry (07/16/17 13:22) Oxygen Administration (07/16/17 13:22) Sodium Chloride 0.9% Flush (Ns Flush) (07/16/17 13:30) Sodium Chlorid 0.9% 500 Ml Inj (Ns 500 M (07/16/17 13:30) Meclizine (Antivert) (07/16/17 13:30) Ed Discharge Order (07/16/17 14:33) Labs Laboratory Tests Test 07/16/17 13:42 White Blood Count 6.9 TH/MM3 Red Blood Count 4.44 MIL/MM3 Hemoglobin 12.6 GM/DL Hematocrit 39.0 % Mean Corpuscular Volume 87.7 FL Mean Corpuscular Hemoglobin 28.4 PG Mean Corpuscular Hemoglobin Concent 32.4 % Red Cell Distribution Width 13.4 % Platelet Count 203 TH/MM3 Mean Platelet Volume 7.9 FL Neutrophils (%) (Auto) 65.6 % Lymphocytes (%) (Auto) 22.5 % Monocytes (%) (Auto) 9.0 % Eosinophils (%) (Auto) 2.0 % Basophils (%) (Auto) 0.9 % Neutrophils # (Auto) 4.6 TH/MM3 Lymphocytes # (Auto) 1.5 TH/MM3 Monocytes # (Auto) 0.6 TH/MM3 Eosinophils # (Auto) 0.1 TH/MM3 Basophils # (Auto) 0.1 TH/MM3 CBC Comment DIFF FINAL Differential Comment Prothrombin Time 10.1 SEC Prothromb Time International Ratio 1.0 RATIO Activated Partial Thromboplast Time 27.1 SEC Blood Urea Nitrogen 17 MG/DL Creatinine 1.10 MG/DL Random Glucose 98 MG/DL Total Protein 8.0 GM/DL Albumin 3.9 GM/DL Calcium Level 8.8 MG/DL Magnesium Level 2.1 MG/DL Alkaline Phosphatase 127 U/L Aspartate Amino Transf (AST/SGOT) 15 U/L Alanine Aminotransferase (ALT/SGPT) 32 U/L Total Bilirubin 0.4 MG/DL Sodium Level 137 MEQ/L Potassium Level 4.3 MEQ/L Chloride Level 103 MEQ/L Carbon Dioxide Level 29.2 MEQ/L Anion Gap 5 MEQ/L Estimat Glomerular Filtration Rate 69 ML/MIN Total Creatine Kinase 75 U/L Troponin I LESS THAN 0.02 NG/ML MDM Medical Decision Making Medical Screen Exam Complete: Yes Emergency Medical Condition: Yes Interpretation(s) EKG shows sinus rhythm at a rate of 76, sinus arrhythmia. No concerning ST segment changes. Nonspecific T-wave inversion in lead III. Intervals within normal limits normal axis. Differential Diagnosis Vertigo, electrolyte abnormality, dehydration, acute kidney injury, ACS seems unlikely. Narrative Course Patient room to the emergency department, review of his records shows about 10 months ago he was admitted to the hospital with similar symptoms albeit he was having nausea and vomiting at that time he had a significant acute kidney injury with creatinine near 5, he was admitted and hydrated and his creatinine about 2.2 on discharge. Today's creatinine is 1.1, his other electrolytes and CMP are within normal limits. His blood counts show no abnormality. Coags are normal as well. Diagnosis Primary Impression: Dizziness Additional Instructions: Follow-up with your bioinformatics analyst next week, with any new or concerning symptoms please return to the emergency department. This includes chest pain. Med/Other Pt SpecificInfo: Prescription(s) given Scripts Meclizine (Meclizine) 25 Mg Tab 25 MG PO DIRECTED Y for VERTIGO, #20 TAB 0 Refills Prov: Dhaval Hsieh MD 07/16/17 Disposition: 01 DISCHARGE HOME Condition: Stable Dhaval Hsieh MD July 16, 2017 14:20
[2017-07-16 14:31] VITALS: BP 155/81; PULSE 82; RESP 17; O2SAT 96
[2017-07-16] MEDS ORDERED: MECL-62 PO (14:37)
--- NOTE | 2017-07-17 14:56 | EKG ---
Date Performed: 07/16/2017 Time Performed: 13:01:08 PTAGE: 57 years EKG: Sinus rhythm WITH SINUS ARRHYTHMIA NONSPECIFIC T-WAVE ABNORMALITY ABNORMAL ECG Compared to PREVIOUS TRACING , the T-wave changes inferiorly are new. Sinus arrhythmia is new. MD int erval is now in the normal range. PREVIOUS TRACIN09/08/2016 17.20 DOCTOR: Eleazar Avila Interpretating Date/Time 07/17/2017 14:54:41
== END 2017-07-16 14:44 | disposition home or self-care (01) ==
LOC: PHED 12:26
DX: R42 Dizziness and giddiness (principal); R94.31 Abnormal electrocardiogram [ECG] [EKG]; R10.9 Unspecified abdominal pain; I25.10 Atherosclerotic heart disease of native coronary artery without angina pectoris; F32.9 Major depressive disorder, single episode, unspecified; E78.00 Pure hypercholesterolemia, unspecified; I10 Essential (primary) hypertension; Z95.1 Presence of aortocoronary bypass graft; Z87.891 Personal history of nicotine dependence
CPT/HCPCS: 71045; 80053; 82550; 83735; 84484; 85025; 85610; 85730; 93005; 96360; 99285; J7040

== ENCOUNTER 2017-12-13 05:25 | Inpatient (IN) ==
--- NOTE | 2017-12-08 13:05 | MH ---
cc: Jennifer Jordan MD DATE OF ADMISSION: 12/13/2017. ADMITTING DIAGNOSIS: Severe osteoarthritic degeneration of right hip, now being admitted for removal of pins and total hip arthroplasty, right hip. HISTORY OF PRESENT ILLNESS: This 57-year-old obese male is being admitted today for right total hip arthroplasty due to severe painful arthritic degeneration of the past history. The patient had multiple surgeries on both hips with pinning done many years ago. He has developed severe osteoarthritis in the right with shortening. PAST MEDICAL HISTORY: The patient has a history of anxiety, arthritis, depression, heart disease, hypertension, and he has had a triple bypass. He has had surgery on both hips. CURRENT MEDICATIONS: 1. Alprazolam. 2. Buspirone. 3. Diclofenac with supper for surgery. 4. Isosorbide. 5. K tabs. 6. Lisinopril. 7. Metoclopramide. 8. Oxycodone. 9. Tamsulosin. 10. Triamcinolone. REVIEW OF SYSTEMS: Noncontributory. FAMILY HISTORY: Noncontributory. He drinks alcohol occasionally, does not smoke. ALLERGIES: SULFA AND PENICILLIN. PHYSICAL EXAMINATION: We find a 57-year-old male, well-developed, well-nourished, oriented x3, complaining of severe pain in his right lower extremity. He also has a partial foot drop on the right and sciatica. VITAL SIGNS: Blood pressure 140/86, pulse 66 and regular, respirations 16, temperature 98.3, pulse oximetry 97% on room air. HEENT: PERRLA, EOMI. Ears, nose, mouth clear. NECK: Supple. LUNGS: Clear. HEART: Regular rate. ABDOMEN: Soft, positive bowel sounds, nontender. EXTREMITIES: Reveal his right hip to have essentially no motion and shortening on the right lower extremity. Ambulates with severe antalgic gait with assistive devices and a partial foot drop on the right. IMPRESSION: Severe arthritic degeneration, right hip for which he is undergoing removal of pins and right total hip arthroplasty today. He understands the procedure well, the possibility of a complete foot drop and was given a prescription for postoperative pain and anticoagulation control in the office. J. MD ARACELI Tidwell/darshan , 12:43 PM , 12:51 PM MTDD
[2017-12-13] MEDS ORDERED: Chlorhexidine Gluconate 2% 1 Pack (2 Cloths) TOPICAL ONE (06:15)
[2017-12-13] MEDS ORDERED: Clindamycin 900 mg/NS Premix 900 MG/50 ML PIGGYBACK IV.SIG SCH (06:15)
[2017-12-13] MEDS ORDERED: Chlorhexidine 4% Topical 120 APPLIC/120 ML Bottle TOPICAL SCH (06:15)
[2017-12-13] MEDS ORDERED: Sodium Chlor 0.9% Inj 500 ML IV.CONT ONE (06:15)
[2017-12-13] MEDS ORDERED: Metoprolol Tartrate 25 MG Tablet PO ONE (06:15)
[2017-12-13] MEDS ORDERED: SODIUM CHLOR 0.9% IV.SIG SCH (07:00)
[2017-12-13] MEDS ORDERED: TRANEXAMIC ACID IV.SIG SCH (07:00)
[2017-12-13] MEDS ORDERED: Phenylephrine/NS 1000 MCG/10ML Syringe IV.PUSH ONE (07:35)
[2017-12-13] MEDS ORDERED: Neostigmine Inj 5 MG/5 ML Syringe IV.PUSH ONE (07:35)
[2017-12-13] MEDS ORDERED: Glycopyrrolate Inj 1 MG/5 ML Syringe IV.PUSH ONE (07:35)
--- NOTE | 2017-12-13 07:55 | P.DCO ---
- Diagnosis (1) Status post total hip replacement, right Status: Acute - Physical Therapy Order: Evaluate and treat, Improve ambulation, Strength and gait training - Home Health Nursing Order: Medical education, Nursing assessment with vital signs - Case Management Consult Yes - Certification I have seen patient Anoop Kaminski on 12/13/17. My clinical findings support the need for the requested home health care services because: High risk of falls I certify that my clinical findings support that this patient is homebound because: Post-op weakness, Unsteady gait/balance, Unsafe to leave home unassisted
[2017-12-13] MEDS ORDERED: Vancomycin Inj 1,000 MG in Sodium Chlor 0.9% Inj 250 ML IV.SIG SCH (08:00)
[2017-12-13] MEDS ORDERED: Sodium Chlor 0.9% Inj 80 ML, Bupivacaine Liposo PF 1.3% Inj 20 ML, Bupivacaine PF 0.25%... IRRIGATION SCH ×3 (08:00)
[2017-12-13] MEDS ORDERED: Metoclopramide 10 MG Tablet PO PRN (08:45)
[2017-12-13] MEDS ORDERED: Non-Formulary Drug (Omega-3s-Dha-Epa-Fish Oil [Omega-3 Fish Oil] 1 CAP) PO SCH (09:00)
[2017-12-13] MEDS ORDERED: *Meperidine Inj 25 MG/ML Vial PERIprocedural Use ONLY ONE (11:44)
[2017-12-13] MEDS ORDERED: fentaNYL Citrate Inj 100 MCG/2 ML Ampul ONE ×2 (11:51→11:52)
[2017-12-13] MEDS ORDERED: Morphine Inj 4 MG/ML Vial ONE (11:52)
[2017-12-13] MEDS ORDERED: *morphine SULFATE 10 MG/ML PERIprocedure ONLY ONE ×2 (12:02→12:13)
--- NOTE | 2017-12-13 12:27 | MP ---
cc: Jennifer Jordan MD DATE OF OPERATION: 12/13/2017 PREOPERATIVE DIAGNOSIS: Severe arthritic degeneration, right hip, with restrictive motion. POSTOPERATIVE DIAGNOSIS: Severe arthritic degeneration, right hip, with restrictive motion. SURGERY PERFORMED: 1. Removal of 3 Gan pins. 2. Release of adhesions from posterior compartment and abductors and hip flexors. 3. Total hip arthroplasty using Aesculap components, size 52 cup, size 11 lateralized stem with a 36 x 52 E liner and size 36 short ceramic head. SURGEON: Jennifer Jordan MD BIOENGINEER: MAZIN Gonzalez ANESTHESIA: General intubation. DESCRIPTION OF PROCEDURE: The patient was brought to the operating room, placed on the operating table in supine position and after successful induction of general anesthesia, the patient was placed on the operating room table in the left lateral decubitus position. Essentially no range of motion could be elicited in the right hip. Therefore, a large posterolateral approach was utilized extending 16 inches in length along the proximal femur, across the greater trochanter and carried posterior castellano toward the buttock. The incision was carried down through subcutaneous tissue and through the tensor fascia yolanda and gluteus az to expose the short external rotators of the hip, which were severely adhesed. At this point, in the greater trochanter, the heads of the 3 Gan pins were found by dissection and removed. This area was then approximated using interrupted #1 Vicryl suture after washing with antibiotic solution and meticulous hemostasis achieved. The short external rotators of the hip were incised at their origin and released. Still no motion of the hip joint was noted. Therefore, deep releases needed to be done along the posterior border of the femur, below the lesser trochanter, above the lesser trochanter and even some of the tissue and muscles into the lesser trochanter to allow the hip to be internally rotated enough for it to be dislocated. Once this was accomplished, large osteophytes were noted off of the femoral neck and femoral head. These were removed using an oscillating saw. At this point, the canal could not be opened as it was totally occluded by bone after a previous surgical intervention many years ago. Therefore, the C-arm was brought in so that we could use a drill through the calcar into the femoral canal in both AP and lateral views to allow us to get into the canal. This was then opened and broached to a size 11. Several cuts needed to be remade to allow further releasing of the tissue. The sciatic nerve was protected and identified before this was done and kept out of harm's way. After the canal was broached to a size 11, the tissue was released around the acetabulum to allow better visualization of the acetabulum and the acetabulum was reamed to a size 52. The wound at this point was irrigated copiously with antibiotic solution and meticulous hemostasis achieved. The size 52 cup was then impacted into place using the angle guide, followed by insertion of the E liner. Next, the trials were inserted into the femoral side and found to track best using a short stem and a size 36 head with a lateralized stem; however, still some restrictive motion noted with abduction and hip extension. Some releasing of the tissue areas anterior to the hip was done as well. The trials were removed. The wound was again irrigated copiously with antibiotic solution and meticulous hemostasis achieved. The actual components were then impacted into place and the hip reduced. Stable range of motion to full flexion and internal rotation, abduction to about 20 degrees without restricted motion and external rotation was restricted as well because of all the tissue adhesions and retracted muscles and hip extension -5 degrees. The capsule was loosely approximated using interrupted #1 Vicryl suture. Then, 80 mL of a mixture of 0.25% Marcaine plain, Exparel and normal saline was then used for extra pain control, staying away from the sciatic nerve. The deep fascia was approximated with running #2 Quill, subcutaneous tissue approximated using interrupted running 3-0 and 4-0 Monocryl and Quill and Prineo dressing. No drain utilized. The estimated blood loss throughout the case was 700 mL. Sponge and suture counts were correct. The patient tolerated the procedure well and left the operating room in satisfactory condition. It should be noted because of all the extra work including releasing of the tissue and also removal of the hardware inside, this case took an extra 2 hours of surgical time. Carisa Vera APRN, was present during the entire procedure to include patient positioning and the procedure. The medical necessity of a nurse practitioner school office assistant was indicated in this case due to the surgical complexity of the case itself. During the surgical case, the surgical assistant certified was working the back table while my surgical group fitness assistant department head RALPH was directly assisting me. J. Eleazar Jordan MD JRRasheeda/jl , 11:28 AM , 11:44 AM
[2017-12-13] MEDS ORDERED: *morphine SULFATE 4 MG/ML PERIprocedure ONLY ONE (12:38)
[2017-12-13] MEDS ORDERED: *HYDROmorphone PF Inj 1 MG/ML Ampul PERIprocedural Use ONLY ONE (12:49)
--- NOTE | 2017-12-13 12:52 | XR ---
EXAM DATE: 12/13/2017 7:42 AM EDT AGE/SEX: 57 years / Male INDICATIONS: Post operative right hip. CLINICAL DATA: This is the patient's initial encounter. Patient reports that signs and symptoms have been present for 1 day and indicates a pain score of Nonresponsive. MEDICAL/SURGICAL HISTORY: . Cardiovascular disease. Hypertension Renal calculi. . CABG. Bila teral hip pinning, age 16. COMPARISON: POI, CT HIP W/O CONTRAST, RIGHT, 08/26/2017. . FINDINGS: Status post right hip arthroplasty. The arthroplasty components are in gross anatomic alignment and p osition. No acute bony fracture. CONCLUSION: 1. Right hip arthroplasty in grossly anatomic alignment without acute fracture. Electronically signed by: Arnaldo Sutton MD 12/13/2017 12:51 PM EDT
[2017-12-13] MEDS: oxyCODONE/Acetaminophen 10/325 Tablet PO PRN ×2 (14:06→18:31)
[2017-12-13] MEDS: Metoprolol Tartrate 50 MG Tablet PO SCH ×2 (14:08→20:43)
[2017-12-13] MEDS: Furosemide 40 MG Tablet PO SCH (14:08)
[2017-12-13] MEDS ORDERED: Post-op Orders (for Pharmacy) OTHER STA (16:07)
[2017-12-13] MEDS ORDERED: Bisacodyl 10 MG Supp RECTAL PRN (16:07)
[2017-12-13] MEDS ORDERED: Morphine Inj 4 MG/ML Vial IV.PUSH PRN (16:07)
--- NOTE | 2017-12-13 16:37 | P.BOP ---
- Preoperative Diagnosis (1) History of fracture of right hip (2) Osteoarthritis of right hip - Postoperative Diagnosis (1) Status post total hip replacement, right Date of procedure: 12/13/17 Procedure: Right Total Hip Arthroplasty; removal of screws Implants: see implant record Anesthesia: GUERDA Surgeon: Jennifer Jordan MD Social Work Job Titles: Carisa Vera Estimated blood loss (mL): 700 Urine output (mL): 0 (no celaya) Pathology: none sent Condition: stable Disposition: PACU
[2017-12-13] MEDS: Morphine Inj 4 MG/ML Vial IV.PUSH PRN ×2 (16:40→20:43)
[2017-12-13] MEDS: ALPRAZolam 0.25 MG Tablet PO PRN (16:41)
[2017-12-13] MEDS: Clindamycin 600 mg/NS Premix 600 MG/50 ML PIGGYBACK IV.SIG SCH (16:51)
--- NOTE | 2017-12-13 19:52 | P.CONREH ---
History of Present Illness Primary Care Provider: Bradley Osorio MD REPLACED BY [facility] - History History Provided By: Patient - Medical History Medical History: Medical History (Last Reviewed 12/13/17 @ 14:10 by Aisha Burrows RN) Anxiety Arthritis Cat scratch fever Chronic lower back pain Depression Enlarged prostate GERD (gastroesophageal reflux disease) H/O kidney injury Heart murmur High cholesterol History of myocardial infarction Hypertension Wears glasses - Surgical History Surgical History: Surgical History (Last Reviewed 12/13/17 @ 14:10 by Aisha Burrows RN) History of coronary artery bypass graft x 3 History of hip surgery - Tobacco History Second Hand Smoke Exposure: No Tobacco Use In Past 30 Days: No Smoking Status: Former smoker Tobacco Type: Cigarettes - Alcohol History How Often Do You Have a Drink Containing Alcohol: Monthly or less - Substance Use History Substance History: No History of Abuse - Travel History Recent Travel in the [place] Within the Last 8 Weeks: No Recent Travel Out of the Country Within the Last 8 Weeks: No - Immunization History Tetanus Immunization: <5 Years Hx Influenza Vaccine This Season: Yes Medications and Allergies Active Medications: Active Medications Al Hydroxide/Mg Hydroxide (Milk Of Scott Liblessing) 30 ml PO BID PRN PRN Reason: Mild Constipation Alprazolam (Xanax) 0.25 mg PO BID PRN PRN Reason: Anxiety Last Admin: 12/13/17 16:41 Dose: 0.25 mg Apixaban (Eliquis) 2.5 mg PO BID [facility] Bisacodyl (Dulcolax Supp) 10 mg RECTAL DAILY PRN PRN Reason: SEVERE CONSITIPATION Buspirone HCl (Buspar) 5 mg PO [facility] Chlorhexidine Gluconate (Hibiclens 4% Topical) 1 applicatio TOPICAL ONCE [facility] Stop: 12/17/17 06:14 Last Admin: 12/13/17 06:00 Dose: 1 applicatio Sodium Chloride 80 ml/Bupivacaine Liposome 20 ml/Bupivacaine HCl 20 ml 0 ml IRRIGATION STATION ATTENDANT [facility] Last Admin: 12/13/17 11:16 Dose: 85 bag Furosemide (Lasix) 40 mg PO DAILY [facility] Last Admin: 12/13/17 14:08 Dose: Not Given Tranexamic Acid 1,090 mg/ (Sodium Chloride) 110.9 mls @ 200 mls/hr IV.SIG ONCE [facility] Stop: 12/13/17 21:00 Last Infusion: 12/13/17 08:30 Dose: Infused Vancomycin HCl 1,000 mg/ (Sodium Chloride) 250 mls @ 250 mls/hr IV.SIG STATION ATTENDANT [facility] Stop: 12/16/17 07:59 Clindamycin/Sodium Chloride (Cleocin 600 Mg/Ns Premix) 600 mg in 50 mls @ 100 mls/hr IV.SIG Q6H [facility] Stop: 12/14/17 11:29 Last Infusion: 12/13/17 17:30 Dose: Infused Lactated Ringer's (Lr 1000 Ml Inj) 1,000 mls @ 80 mls/hr IV.CONT .[id number] [facility] Last Admin: 12/13/17 16:47 Dose: 80 mls/hr Isosorbide Mononitrate (Imdur) 60 mg PO HS [facility] Lactulose (Lactulose Liq) 30 ml PO DAILY PRN PRN Reason: SEVERE CONSITIPATION Lisinopril (Prinivil) 20 mg PO DAILY [facility] Magnesium Oxide (Mag-Ox) 400 mg PO HS@2300 [facility] Metoclopramide HCl (Reglan) 5 mg PO TID PRN PRN Reason: NAUSEA Metoprolol Tartrate (Lopressor) 50 mg PO BID [facility] Last Admin: 12/13/17 14:08 Dose: Not Given Miscellaneous Information (Misc Nursing Information) 0 each OTHER UNSCH PRN PRN Reason: SEE LABEL COMMENTS Stop: 12/14/17 11:49 Morphine Sulfate (Morphine Inj) 4 mg IV.PUSH Q3H PRN PRN Reason: BREAKTHROUGH PAIN Last Admin: 12/13/17 16:40 Dose: 4 mg Nitroglycerin (Nitrostat Sl) 0.4 mg SL Q5M PRN PRN Reason: CHEST PAIN Ondansetron HCl (Zofran Odt) 4 mg PO Q6H PRN PRN Reason: NAUSEA OR VOMITING Oxycodone/Acetaminophen (Percocet 10/325 Mg) 1 tab PO Q4H PRN PRN Reason: PAIN SCALE 6 TO 10 Last Admin: 12/13/17 18:31 Dose: 1 tab Pantoprazole Sodium (Protonix) 40 mg PO DAILY [facility] Last Admin: 12/13/17 14:08 Dose: Not Given Potassium Chloride (K-Dur) 20 meq PO DAILY [facility] Last Admin: 12/13/17 14:08 Dose: Not Given Pravastatin Sodium (Pravachol) 40 mg PO DAILY [facility] Last Admin: 12/13/17 14:08 Dose: Not Given Senna/Docusate Sodium (Monica-Colace) 1 tab PO BID [facility] Sennosides (Senokot) 17.2 mg PO BID PRN PRN Reason: Moderate Constipation Sodium Chloride (Ns Flush) 2 ml IV.FLUSH BID [facility] Sodium Chloride (Ns Flush) 2 ml IV.FLUSH PRN PRN PRN Reason: FLUSH AFTER USING IV ACCESS Tamsulosin HCl (Flomax) 0.4 mg PO [facility] Allergies Allergy/AdvReac Type Severity Reaction Status Date / Time penicillin G Allergy Severe RASH, Verified 12/13/17 05:46 VOMITING Sulfa (Sulfonamide Allergy Severe RASH, Verified 12/13/17 05:46 Antibiotics) VOMITING Home Medications Medication Instructions Recorded Confirmed Type alprazolam 0.25 mg PO BID PRN 12/06/17 12/13/17 History aspirin [Aspir-81] 81 mg PO DAILY 12/06/17 12/13/17 History buspirone 5 mg PO HS 12/06/17 12/13/17 History diclofenac sodium 75 mg PO BID 12/06/17 12/13/17 History furosemide 20 mg PO DAILY PRN 12/06/17 12/13/17 History furosemide 40 mg PO DAILY 12/06/17 12/13/17 History isosorbide mononitrate 60 mg PO HS 12/06/17 12/13/17 History lisinopril 20 mg PO DAILY 12/06/17 12/13/17 History magnesium oxide 400 mg PO HS 12/06/17 12/13/17 History metoclopramide HCl 5 mg PO TID PRN 12/06/17 12/13/17 History metoprolol tartrate 50 mg PO BID 12/06/17 12/13/17 History nitroglycerin [Nitrostat] 0.4 mg SUBLINGUAL Q5-15M PRN 12/06/17 12/13/17 History [id number] oil [[place]-3 1 cap PO DAILY 12/06/17 12/13/17 History Fish Oil] oxycodone-acetaminophen 1 tab PO 5 TIMES A DAY PRN 12/06/17 12/13/17 History pantoprazole 40 mg PO DAILY 12/06/17 12/13/17 History potassium chloride [K-Tab] 20 meq PO DAILY 12/06/17 12/13/17 History pravastatin 40 mg PO DAILY 12/06/17 12/13/17 History tamsulosin 0.4 mg PO HS 12/06/17 12/13/17 History Exam - Physical Examination Vital Signs / I&O: Vital Signs 12/13/17 05:55 12/13/17 11:42 12/13/17 11:45 Temperature 99 F 98.1 F Pulse Rate 74 101 H 96 H Respiratory Rate 16 14 11 L Blood Pressure 140/61 114/59 L 108/53 L Pulse Oximetry 94 L 99 99 12/13/17 12:00 12/13/17 12:13 12/13/17 12:15 Temperature Pulse Rate 96 H 94 H Respiratory Rate 12 14 13 Blood Pressure 108/53 L 112/55 L Pulse Oximetry 99 95 12/13/17 12:30 12/13/17 12:45 12/13/17 13:00 Temperature Pulse Rate 92 H 95 H 99 H Respiratory Rate 12 15 21 Blood Pressure 105/49 L 97/53 L 93/53 L Pulse Oximetry 96 96 94 L 12/13/17 13:52 12/13/17 17:19 Temperature 98.6 F 98.6 F Pulse Rate 98 H 98 H Respiratory Rate 18 18 Blood Pressure 108/51 L 108/51 L Pulse Oximetry 96 96 Intake & Output 12/13/17 12/13/17 12/14/17 06:59 18:59 06:59 Intake Total 2490.9 / 2490.9 Output Total 2300 / 2300 Balance 190.9 / 190.9 Weight 109 kg 111.1 kg Intake: IV 1210.9 / 1210.9 LR 1000 mL Inj 1,000 ML @ 30 1000 / 1000 mls/hr IV.CONT .Q24H [facility] Rx#: [id number] Cleocin 600 mg/NS Premix 600 mg 50 / 50 In 50 ml @ 100 mls/hr IV.SIG Q6H [facility] Rx#:[id number] Cleocin 900 mg/NS Premix 900 mg 50 / 50 In 50 ml @ 100 mls/hr IV.SIG STATION ATTENDANT [facility] Rx#:[id number] Cyklokapron Inj 1,090 MG In NS 110.9 / 110.9 Inj 100 ML @ 200 mls/hr IV.SIG ONCE [facility] Rx#:[id number] Oral 380 / 380 Anesthesia Amount 900 / 900 Output: Urine 1000 / 1000 Estimated Blood Loss 700 / 700 Urine Amount (Catheter) 600 / 600 Straight 600 / 600 Other: # Bowel Movements 0 Weight On Admission 109 kg Intake & Output 12/11/17 12/12/17 12/13/17 12/14/17 06:59 06:59 06:59 06:59 Intake Total 2490.9 / 2490.9 Output Total 2300 / 2300 Balance 190.9 / 190.9 Weight 109 kg 111.1 kg Results - Labs Labs: Laboratory Results - last 24 hr 12/13/17 06:15 Blood Type O Positive Antibody Screen Negative - Imaging Impressions Hip X-Ray 12/13/17 07:42 CONCLUSION: 1. Right hip arthroplasty in grossly anatomic alignment without acute fracture. Assessment and Plan (1) Status post total hip replacement, right Status: Acute Code(s): Z96.641 - Presence of right artificial hip joint - Plan 1. PT evaluation 12/14/17 2. OT consult for ADL evaluation 3. Will follow regrading rehab needs for discharge but anticipate that patient will be able to discharge home with home health as he was able to transfer to chair and sit without difficulty on day of surgery 4. Will follow and as appropriate at discharge.
[2017-12-13] MEDS: Senna/Docusate Sodium 8.6/50 MG Tablet PO SCH (20:43)
[2017-12-13] MEDS: Isosorbide Mononitrate 60 MG ER 24HR Tablet (Imdur) PO SCH (20:43)
[2017-12-14] MEDS: Magnesium Oxide 400 MG Tablet PO SCH ×2 (00:19→23:22)
[2017-12-14] MEDS: Clindamycin 600 mg/NS Premix 600 MG/50 ML PIGGYBACK IV.SIG SCH ×3 (00:20→11:09)
[2017-12-14] MEDS: oxyCODONE/Acetaminophen 10/325 Tablet PO PRN ×3 (00:20→09:59)
[2017-12-14] MEDS: Morphine Inj 4 MG/ML Vial IV.PUSH PRN ×2 (02:35→08:59)
[2017-12-14] MEDS: Furosemide 40 MG Tablet PO SCH (08:54)
[2017-12-14] MEDS: Senna/Docusate Sodium 8.6/50 MG Tablet PO SCH ×2 (08:54→21:01)
[2017-12-14 08:55] LABS: Hematocrit 25.3 % (39.0-51.0); Hemoglobin 8.6 gm/dL (13.0-17.0)
[2017-12-14] MEDS: Metoprolol Tartrate 50 MG Tablet PO SCH ×2 (08:55→21:03)
[2017-12-14] MEDS: ALPRAZolam 0.25 MG Tablet PO PRN ×2 (08:55→21:01)
[2017-12-14] MEDS ORDERED: Lisinopril 20 MG Tablet PO SCH (09:00)
--- NOTE | 2017-12-14 09:03 | P.PNOP ---
Subjective Interval history: Patient is complaining of quite a bit of pain in his right hip today. Physical Exam Vital signs: Vital Signs 12/13/17 11:42 12/13/17 11:45 12/13/17 12:00 Temperature 98.1 F Pulse Rate 101 H 96 H 96 H Respiratory Rate 14 11 L 12 Blood Pressure 114/59 L 108/53 L 108/53 L Pulse Oximetry 99 99 99 12/13/17 12:13 12/13/17 12:15 12/13/17 12:30 Temperature Pulse Rate 94 H 92 H Respiratory Rate 14 13 12 Blood Pressure 112/55 L 105/49 L Pulse Oximetry 95 96 12/13/17 12:45 12/13/17 13:00 12/13/17 13:52 Temperature 98.6 F Pulse Rate 95 H 99 H 98 H Respiratory Rate 15 21 18 Blood Pressure 97/53 L 93/53 L 108/51 L Pulse Oximetry 96 94 L 96 12/13/17 17:19 12/13/17 20:00 12/14/17 00:00 Temperature 98.6 F 98.6 F 97.8 F Pulse Rate 98 H 112 H 97 H Respiratory Rate 18 19 18 Blood Pressure 108/51 L 143/77 H 103/52 L Pulse Oximetry 96 95 94 L 12/14/17 02:30 12/14/17 04:00 12/14/17 08:00 Temperature 98.1 F 98.1 F Pulse Rate 83 74 Respiratory Rate 18 18 18 Blood Pressure 99/55 L 104/51 L Pulse Oximetry 95 94 L Intake & Output 12/13/17 12/14/17 12/14/17 18:59 06:59 18:59 Intake Total 2490.9 / 2490.9 1100 / 1100 Output Total 2300 / 2300 1000 / 1000 Balance 190.9 / 190.9 100 / 100 Weight 111.1 kg 110.6 kg Intake: IV 1210.9 / 1210.9 1100 / 1100 LR 1000 mL Inj 1,000 ML @ 80 1000 / 1000 1000 / 1000 mls/hr IV.CONT .[id number] [facility] Rx# :[id number] Cleocin 600 mg/NS Premix 600 mg 50 / 50 100 / 100 In 50 ml @ 100 mls/hr IV.SIG Q6H [facility] Rx#:[id number] Cleocin 900 mg/NS Premix 900 mg 50 / 50 In 50 ml @ 100 mls/hr IV.SIG [employer] [facility] Rx#:[id number] Cyklokapron Inj 1,090 MG In NS 110.9 / 110.9 Inj 100 ML @ 200 mls/hr IV.SIG ONCE [facility] Rx#:[id number] Oral 380 / 380 Anesthesia Amount 900 / 900 Output: Urine 1000 / 1000 1000 / 1000 Estimated Blood Loss 700 / 700 Urine Amount (Catheter) 600 / 600 Straight 600 / 600 Other: # Bowel Movements 0 - Constitutional no acute distress - Urinary Catheter Management Straight Cath placed during this visit: no Results - Labs CBC & Chem 7: 12/14/17 08:15 Laboratory Results - last 24 hr 12/14/17 08:15 Hgb 8.6 L Hct 25.3 L - Imaging Impressions Hip X-Ray 12/13/17 07:42 CONCLUSION: 1. Right hip arthroplasty in grossly anatomic alignment without acute fracture. Assessment and Plan - Ortho Post Op Day # 1 - Problem List (1) Status post total hip replacement, right Code(s): Z96.641 - Presence of right artificial hip joint Status: Acute - Attending Attestation Attending Attestation: Patient is lying in bed at the present time. He is neurovascularly intact to his toes. There is no calf tenderness. Plan is for the patient to continue with physical therapy and eventually be transferred to [place] rehab for continuation of care.
--- NOTE | 2017-12-14 13:44 | P.CONIM ---
History of Present Illness Consult date: 12/14/17 Requesting Physician: Domenica Jordan Reason for Consult: Medical Management Primary Care Provider: Bradley Osorio MD History of Present Illness: Mr. Kaminski is a 57 y/o male with osteoarthritis/DJD of the right hip with chronic pain, CAD/MD, HTN, hyperlipidemia, and anxiety. Pt was admitted on 12/13 for right total hip arthroplasty with Dr. Jordan. The [facility] hospitalist team was consulted to help with medical management. Pt is seen post-operatively in the Orthopedic unit. He has been having issues with hypotension post- operatively. Pt normally takes Metoprolol 50mg BID, lisinopril 20mg po daily, and Lasix 40mg in AM and 20mg in PM. Pt chronically takes Percocet 5/325 5 times daily PRN as an outpt. Pt is very upset about his pain meds being held due to hypotension. He was resumed on his home BP meds following surgery. Pt also complains of urinary urgency and frequency since surgery although he has had good urinary output. Denies any abdominal pain, nausea/vomiting, fevers or chills,. chest pain or SOB. Past Medical Hx: Osteoarthritis with DJD of right hip with chronic pain requiring mcc opiate use HTN Hyperlipidemia Adjustment disorder with depressed mood CAD with hx of MD Anxiety Obesity Nephrolithiasis Past Surgical Hx: CABG x 3 in 2009 Bilateral hip surgery in 1976 Family Hx: Father with HTN and Parkinson's Mother with HTN Social Hx: Hx of tobacco use, smoked 1 ppd x 27 years, quit in 2009 Rare social alcohol use Denies any illicit drug use Review of Systems Constitutional: Denies chills, Denies fever(s) Eyes: Denies change in vision Ears, Nose, Mouth, and Throat: Denies headache(s), Denies post nasal drip, Denies sore throat Cardiovascular: Denies chest pain, Denies shortness of breath Respiratory: Denies cough, Denies wheezing Gastrointestinal: Denies abdominal pain, Denies nausea, Denies vomiting Genitourinary: Reports urinary frequency, Reports urinary urgency Musculoskeletal: Reports joint pain Skin/Breast: Denies rash PMFSH - History History Provided By: Patient - Medical History Medical History: Medical History (Last Reviewed 12/16/17 @ 15:19 by Roxanna Swan RN) Anxiety Arthritis Cat scratch fever Chronic lower back pain Depression Enlarged prostate GERD (gastroesophageal reflux disease) H/O kidney injury Heart murmur High cholesterol History of myocardial infarction Hypertension Wears glasses - Surgical History Surgical History: Surgical History (Last Reviewed 12/16/17 @ 15:19 by Roxanna Swan RN) History of coronary artery bypass graft x 3 History of hip surgery - Tobacco History Second Hand Smoke Exposure: No Tobacco Use In Past 30 Days: No Smoking Status: Former smoker Tobacco Type: Cigarettes - Alcohol History How Often Do You Have a Drink Containing Alcohol: Monthly or less - Substance Use History Substance History: No History of Abuse - Travel History Recent Travel in the [place] Within the Last 8 Weeks: No Recent Travel Out of the Country Within the Last 8 Weeks: No - Immunization History Tetanus Immunization: <5 Years Hx Influenza Vaccine This Season: Yes Medications and Allergies Allergies Allergy/AdvReac Type Severity Reaction Status Date / Time penicillin G Allergy Severe RASH, Verified 12/16/17 15:19 VOMITING Sulfa (Sulfonamide Allergy Severe RASH, Verified 12/16/17 15:19 Antibiotics) VOMITING Home Medications Medication Instructions Recorded Confirmed Type alprazolam 0.25 mg PO BID PRN 12/06/17 12/16/17 History buspirone 5 mg PO HS 12/06/17 12/16/17 History furosemide 20 mg PO DAILY PRN 12/06/17 12/16/17 History furosemide 40 mg PO DAILY 12/06/17 12/16/17 History isosorbide mononitrate 60 mg PO HS 12/06/17 12/16/17 History lisinopril 20 mg PO DAILY 12/06/17 12/16/17 History magnesium oxide 400 mg PO HS 12/06/17 12/16/17 History metoclopramide HCl 5 mg PO TID PRN 12/06/17 12/16/17 History metoprolol tartrate 50 mg PO BID 12/06/17 12/16/17 History nitroglycerin [Nitrostat] 0.4 mg SUBLINGUAL Q5-15M PRN 12/06/17 12/16/17 History [id number] oil [[place]-3 1 cap PO DAILY 12/06/17 12/16/17 History Fish Oil] oxycodone-acetaminophen 1 tab PO 5 TIMES A DAY PRN 12/06/17 12/16/17 History pantoprazole 40 mg PO DAILY 12/06/17 12/16/17 History potassium chloride [K-Tab] 20 meq PO DAILY 12/06/17 12/16/17 History pravastatin 40 mg PO DAILY 12/06/17 12/16/17 History tamsulosin 0.4 mg PO HS 12/06/17 12/16/17 History Active Medications: Active Medications Al Hydroxide/Mg Hydroxide (Milk Of Magnesia Liq) 30 ml PO BID PRN PRN Reason: Mild Constipation Alprazolam (Xanax) 0.25 mg PO BID PRN PRN Reason: Anxiety Last Admin: 12/14/17 08:55 Dose: 0.25 mg Apixaban (Eliquis) 2.5 mg PO BID [facility] Last Admin: 12/14/17 08:54 Dose: 2.5 mg Bisacodyl (Dulcolax Supp) 10 mg RECTAL DAILY PRN PRN Reason: SEVERE CONSITIPATION Buspirone HCl (Buspar) 5 mg PO [facility] Last Admin: 12/13/17 20:43 Dose: 5 mg Chlorhexidine Gluconate (Hibiclens 4% Topical) 1 applicatio TOPICAL ONCE [facility] Stop: 12/17/17 06:14 Last Admin: 12/13/17 06:00 Dose: 1 applicatio Sodium Chloride 80 ml/Bupivacaine Liposome 20 ml/Bupivacaine HCl 20 ml 0 ml 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 [facility] Last Admin: 12/13/17 11:16 Dose: 85 bag Furosemide (Lasix) 40 mg PO DAILY [facility] Last Admin: 12/14/17 08:54 Dose: 40 mg Vancomycin HCl 1,000 mg/ (Sodium Chloride) 250 mls @ 250 mls/hr IV.SIG W[employer]AK REPAIR[employer] [facility] Stop: 12/16/17 07:59 Lactated Ringer's (Lr 1000 Ml Inj) 1,000 mls @ 80 mls/hr IV.CONT .[id number] [facility] Last Admin: 12/14/17 08:20 Dose: 80 mls/hr Isosorbide Mononitrate (Imdur) 60 mg PO [facility] Last Admin: 12/13/17 20:43 Dose: 60 mg Lactulose (Lactulose Liq) 30 ml PO DAILY PRN PRN Reason: SEVERE CONSITIPATION Lisinopril (Prinivil) 20 mg PO DAILY [facility] Last Admin: 12/14/17 08:54 Dose: 20 mg Magnesium Oxide (Mag-Ox) 400 mg PO HS@2300 [facility] Last Admin: 12/14/17 00:19 Dose: 400 mg Metoclopramide HCl (Reglan) 5 mg PO TID PRN PRN Reason: NAUSEA Metoprolol Tartrate (Lopressor) 50 mg PO BID [facility] Last Admin: 12/14/17 08:55 Dose: 50 mg Morphine Sulfate (Morphine Inj) 4 mg IV.PUSH Q3H PRN PRN Reason: BREAKTHROUGH PAIN Last Admin: 12/14/17 08:59 Dose: 4 mg Nitroglycerin (Nitrostat Sl) 0.4 mg SL Q5M PRN PRN Reason: CHEST PAIN Ondansetron HCl (Zofran Odt) 4 mg PO Q6H PRN PRN Reason: NAUSEA OR VOMITING Oxycodone/Acetaminophen (Percocet 10/325 Mg) 1 tab PO Q4H PRN PRN Reason: PAIN SCALE 6 TO 10 Last Admin: 12/14/17 09:59 Dose: 1 tab Pantoprazole Sodium (Protonix) 40 mg PO DAILY [facility] Last Admin: 12/14/17 08:54 Dose: 40 mg Potassium Chloride (K-Dur) 20 meq PO DAILY [facility] Last Admin: 12/14/17 08:55 Dose: 20 meq Pravastatin Sodium (Pravachol) 40 mg PO DAILY [facility] Last Admin: 12/14/17 08:55 Dose: 40 mg Senna/Docusate Sodium (Monica-Colace) 1 tab PO BID [facility] Last Admin: 12/14/17 08:54 Dose: 1 tab Sennosides (Senokot) 17.2 mg PO BID PRN PRN Reason: Moderate Constipation Sodium Chloride (Ns Flush) 2 ml IV.FLUSH BID [facility] Last Admin: 12/14/17 08:56 Dose: Not Given Sodium Chloride (Ns Flush) 2 ml IV.FLUSH PRN PRN PRN Reason: FLUSH AFTER USING IV ACCESS Tamsulosin HCl (Flomax) 0.4 mg PO [facility] Last Admin: 12/13/17 20:43 Dose: 0.4 mg Exam Vital signs: Vital Signs 12/13/17 13:52 12/13/17 17:19 12/13/17 20:00 Temperature 98.6 F 98.6 F 98.6 F Pulse Rate 98 H 98 H 112 H Respiratory Rate 18 18 19 Blood Pressure 108/51 L 108/51 L 143/77 H Pulse Oximetry 96 96 95 12/14/17 00:00 12/14/17 02:30 12/14/17 04:00 Temperature 97.8 F 98.1 F Pulse Rate 97 H 83 Respiratory Rate 18 18 18 Blood Pressure 103/52 L 99/55 L Pulse Oximetry 94 L 95 12/14/17 08:00 12/14/17 12:00 Temperature 98.1 F 98.5 F Pulse Rate 74 81 Respiratory Rate 18 18 Blood Pressure 104/51 L 88/49 L Pulse Oximetry 94 L 95 Intake & Output 12/13/17 12/14/17 12/14/17 18:59 06:59 18:59 Intake Total 2490.9 / 2490.9 1100 / 1100 50 / 50 Output Total 2300 / 2300 1000 / 1000 Balance 190.9 / 190.9 100 / 100 50 / 50 Weight 111.1 kg 110.6 kg Intake: IV 1210.9 / 1210.9 1100 / 1100 50 / 50 LR 1000 mL Inj 1,000 ML @ 80 1000 / 1000 1000 / 1000 mls/hr IV.CONT .[id number] [facility] Rx# :[id number] Cleocin 600 mg/NS Premix 600 mg 50 / 50 100 / 100 50 / 50 In 50 ml @ 100 mls/hr IV.SIG Q6H [facility] Rx#:[id number] Cleocin 900 mg/NS Premix 900 mg 50 / 50 In 50 ml @ 100 mls/hr IV.SIG [employer]PAIRER [facility] Rx#:[id number] Cyklokapron Inj 1,090 MG In NS 110.9 / 110.9 Inj 100 ML @ 200 mls/hr IV.SIG ONCE [facility] Rx#:[id number] Oral 380 / 380 Anesthesia Amount 900 / 900 Output: Urine 1000 / 1000 1000 / 1000 Estimated Blood Loss 700 / 700 Urine Amount (Catheter) 600 / 600 Straight 600 / 600 Other: # Bowel Movements 0 Narrative: GENERAL: NAD, AAOx3 SKIN: Warm and dry. HEENT: Atraumatic. Normocephalic. Pupils equal and round. No scleral icterus. No injection or drainage. No nasal bleeding or discharge. Mucous membranes pink and moist. NECK: Trachea midline. No JVD. CARDIO: Regular rate and rhythm. RESP: CTA bilaterally. ABD: +BS, soft, non-tender, nondistended. EXT: No LE edema. Swelling/firmness in the left forearm NEURO: Awake and alert. No obvious cranial nerve deficits. Motor grossly within normal limits. Five out of 5 muscle strength in the arms and legs. Normal speech. PSYCHIATRIC: Appropriate mood and affect; insight and judgment normal. Results - Labs CBC & Chem 7: 12/15/17 04:14 12/15/17 04:14 Labs: Laboratory Results - last 24 hr 12/14/17 08:15 Hgb 8.6 L Hct 25.3 L Assessment and Plan - Assessment (1) Osteoarthritis of right hip Code(s): M16.11 - Unilateral primary osteoarthritis, right hip Status: Acute Plan: Osteoarthritis Right Hip S/p Right THR - Pt is a 57 y/o male with osteoarthritis/DJD of the right hip with chronic pain , CAD/MD, HTN, hyperlipidemia, and anxiety. - Pt was admitted on 12/13/17 for right total hip arthroplasty with Dr. Jordan. - Percocet PRN as BP allows - PT daily - IS - DVT prophylaxis HTN CAD with hx of MD - He has been having issues with hypotension post-operatively. - Pt normally takes Metoprolol 50mg BID, lisinopril 20mg po daily, and Lasix 40mg in AM and 20mg in PM. - Pt chronically takes Percocet 5/325 5 times daily PRN as an outpt. - We will hold his Lasix and Lisinopril and Decrease his Metoprolol to 12.5mg BID. - Stop the IV Morphine. He can have Percocet 5/325mg Q4H PRN if his systolic BP is over 120 - Monitor BP closely - Cont. Imdur for now Urinary urgency - Pt also complains of urinary urgency and frequency since surgery although he has had good urinary output. - Check UA - Family requesting bladder scan - Cont. Flomax (2) Status post total hip replacement, right Code(s): Z96.641 - Presence of right artificial hip joint Status: Acute (3) HTN (hypertension) Code(s): I10 - Essential (primary) hypertension Status: Acute - Attending Attestation The exam, history, and the medical decision-making described in the above note were completed with the assistance of the mid-level provider. I reviewed and agree with the findings presented. I attest that I had a [id number] encounter with the patient on the same day, and personally performed and documented my assessment and findings in the medical record. Patient examined. Assessment and plan formulated with Laura Fink PA-C. I agree with the above.
[2017-12-14 15:22] LABS: Calcium 7.7 mg/dL (8.5-10.1); Carbon Dioxide 27.7 meq/L (21.0-32.0); Potassium 4.6 meq/L (3.5-5.1)
[2017-12-14] MEDS: Ketorolac Inj 30 MG/ML (IVP) Vial IV.PUSH PRN ×2 (15:50→21:31)
[2017-12-14] MEDS: Sodium Chloride 0.45 % Inj 1,000 ML IV.CONT SCH (15:51)
[2017-12-14 18:06] LABS: Bacteria,Urine Rare /hpf; Bilirubin,Urine Negative (Negative); Clarity,Urine Clear (Clear); Color,Urine Straw (Yellw/Straw); Glucose,Urine (UA) Negative (Negative); Leukocyte Esterase,Urine Negative (Negative); Nitrite,Urine Negative (Negative); Specific Gravity,Urine 1.004 (1.002-1.035)
[2017-12-14] MEDS: Isosorbide Mononitrate 60 MG ER 24HR Tablet (Imdur) PO SCH (21:01)
[2017-12-15] MEDS: Sodium Chloride 0.45 % Inj 1,000 ML IV.CONT SCH ×2 (03:18→17:06)
[2017-12-15] MEDS: Ketorolac Inj 30 MG/ML (IVP) Vial IV.PUSH PRN ×2 (04:23→20:27)
[2017-12-15 05:08] LABS: Hematocrit 24.3 % (39.0-51.0); Hemoglobin 8.3 gm/dL (13.0-17.0)
[2017-12-15 05:35] LABS: Calcium 7.7 mg/dL (8.5-10.1); Carbon Dioxide 29.5 meq/L (21.0-32.0); Magnesium 2.2 mg/dL (1.5-2.5); Potassium 4.3 meq/L (3.5-5.1)
--- NOTE | 2017-12-15 08:13 | P.PNOP ---
Subjective Interval history: Patient is still having quite a bit of pain and difficulty with his right lower extremity. Physical Exam Vital signs: Vital Signs 12/14/17 12:00 12/14/17 16:00 12/14/17 19:16 Temperature 98.5 F 98.1 F Pulse Rate 81 86 Respiratory Rate 18 18 Blood Pressure 88/49 L 107/56 L 140/85 Pulse Oximetry 95 95 12/14/17 20:15 12/15/17 00:00 Temperature 97.9 F 97.8 F Pulse Rate 91 H 79 Respiratory Rate 18 18 Blood Pressure 120/58 L 137/61 Pulse Oximetry 99 97 Intake & Output 12/14/17 12/15/17 12/15/17 18:59 06:59 18:59 Intake Total 1010 / 1010 1436 / 1436 Output Total 1025 / 1025 625 / 625 Balance -15 / -15 811 / 811 Weight 110.6 kg Intake: IV 50 / 50 956 / 956 LR 1000 mL Inj 1,000 ML @ 80 0 / 0 mls/hr IV.CONT .[id number] [facility] Rx# :[id number] 1/2 Normal Saline Inj 1,000 ML 956 / 956 @ 84 mls/hr IV.CONT .[id number] [facility] Rx#:[id number] Cleocin 600 mg/NS Premix 600 mg 50 / 50 In 50 ml @ 100 mls/hr IV.SIG Q6H [facility] Rx#:[id number] Oral 960 / 960 480 / 480 Output: Urine 1025 / 1025 625 / 625 Other: Date of Last Bowel Movement 12/13/17 # Bowel Movements 0 - Constitutional no acute distress - Urinary Catheter Management Straight Cath placed during this visit: no Results - Labs CBC & Chem 7: 12/15/17 04:14 12/15/17 04:14 Laboratory Results - last 24 hr 12/14/17 12/14/17 12/14/17 08:15 14:40 16:59 Hgb 8.6 L Hct 25.3 L Sodium 132 L Potassium 4.6 Chloride 100 Carbon Dioxide 27.7 Anion Gap 4 L BUN 26 H Creatinine 1.20 Estimated GFR 63 L Random Glucose 121 H Calcium 7.7 L Magnesium Urine Color Straw Urine Clarity Clear Urine pH 6.0 Ur Specific [place] 1.004 Urine Protein Negative Urine Glucose (UA) Negative Urine Ketones Negative Urine Occult Blood Negative Urine Nitrate Negative Urine Bilirubin Negative Urine Urobilinogen Less than 2 Ur Leukocyte Esterase Negative Urine RBC Less than 1 Urine Bacteria Rare H Micro UA Comment Culture not ind Ur Microscopic Review Not Reportable Urine Culture Comments Culture not ind 12/15/17 12/15/17 04:14 04:14 Hgb 8.3 L Hct 24.3 L Sodium 135 L Potassium 4.3 Chloride 101 Carbon Dioxide 29.5 Anion Gap 5 BUN 26 H Creatinine 1.16 Estimated GFR 65 L Random Glucose 105 Calcium 7.7 L Magnesium 2.2 Urine Color Urine Clarity Urine pH Ur Specific [place] Urine Protein Urine Glucose (UA) Urine Ketones Urine Occult Blood Urine Nitrate Urine Bilirubin Urine Urobilinogen Ur Leukocyte Esterase Urine RBC Urine Bacteria Micro UA Comment Ur Microscopic Review Urine Culture Comments Assessment and Plan - Problem List (1) Status post total hip replacement, right Code(s): Z96.641 - Presence of right artificial hip joint Status: Acute - Attending Attestation Attending Attestation: Patient is only able to get to a standing position and take 1 or 2 steps before stopping. His dressing is dry and intact and he is neurovascularly intact to his toes. Patient needs aggressive physical therapy in a rehab setting after discharge from the hospital. Plan is for him to go to either [facility] or [facility] rehab unit if unable to get into [facility]. He can definitely not go home nor should he go to a half-way facility.
[2017-12-15] MEDS: Senna/Docusate Sodium 8.6/50 MG Tablet PO SCH ×2 (09:10→20:25)
[2017-12-15] MEDS: ALPRAZolam 0.25 MG Tablet PO PRN ×2 (09:11→20:25)
[2017-12-15] MEDS: Metoprolol Tartrate 50 MG Tablet PO SCH ×3 (09:11→20:25)
--- NOTE | 2017-12-15 10:24 | P.PNIM ---
Subjective Interval history: Pt c/o continued surgical pain at right hip Physical Exam Vital signs: 12/14/17 20:15 12/15/17 00:00 12/15/17 08:00 Temperature 97.9 F 97.8 F 98.2 F Pulse Rate 91 H 79 94 H Respiratory Rate 18 18 18 Blood Pressure 120/58 L 137/61 133/68 Pulse Oximetry 99 97 94 L Narrative: GENERAL: NAD, AAOx3 SKIN: Warm and dry. HEENT: Atraumatic. Normocephalic. Pupils equal and round. No scleral icterus. No injection or drainage. No nasal bleeding or discharge. Mucous membranes pink and moist. NECK: Trachea midline. No JVD. CARDIO: Regular rate and rhythm. RESP: CTA bilaterally. ABD: +BS, soft, non-tender, nondistended. EXT: No LE edema. Swelling/firmness in the left forearm NEURO: Awake and alert. No obvious cranial nerve deficits. Motor grossly within normal limits. Five out of 5 muscle strength in the arms and legs. Normal speech. PSYCHIATRIC: Appropriate mood and affect; insight and judgment normal. - Urinary Catheter Management Straight Cath placed during this visit: no Results - Labs CBC & Chem 7: 12/15/17 04:14 12/15/17 04:14 Assessment and Plan - Assessment (1) Osteoarthritis of right hip Code(s): M16.11 - Unilateral primary osteoarthritis, right hip Status: Acute Plan: Osteoarthritis Right Hip S/p Right THR - Pt is a 57 y/o male with osteoarthritis/DJD of the right hip with chronic pain , CAD/ME, HTN, hyperlipidemia, and anxiety. - Pt was admitted on 12/13/17 for right total hip arthroplasty with Dr. Jordan. - Percocet PRN as BP allows - PT daily - IS - DVT prophylaxis - anticipate home with C vs SNF in 1-2 days HTN CAD with hx of ME - He has been having issues with hypotension post-operatively. - Pt normally takes Metoprolol 50mg BID, lisinopril 20mg po daily, and Lasix 40mg in AM and 20mg in PM. - Pt chronically takes Percocet 5/325 5 times daily PRN as an outpt. - We will hold his Lasix and Lisinopril and Decrease his Metoprolol to 12.5mg BID. - Stop the IV Morphine. He can have Percocet 5/325mg Q4H PRN if his systolic BP is over 120 - Monitor BP closely - Cont. Imdur for now 12/15/17 - continue to hold lisinopril, lasix for now. I anticipate that these will be able to be restarted in a few days. - Pt interviewed and examined will continue current medical treatment as outlined above. Urinary urgency - Pt also complains of urinary urgency and frequency since surgery although he has had good urinary output. - UA (12/14) --> essentially negative - Family requesting bladder scan - Cont. Flomax (2) Status post total hip replacement, right Code(s): Z96.641 - Presence of right artificial hip joint Status: Acute (3) HTN (hypertension) Code(s): I10 - Essential (primary) hypertension Status: Acute
[2017-12-15] MEDS: Isosorbide Mononitrate 60 MG ER 24HR Tablet (Imdur) PO SCH (20:25)
[2017-12-15] MEDS: Magnesium Oxide 400 MG Tablet PO SCH (22:32)
[2017-12-16 01:31] VITALS: O2SAT 96
[2017-12-16] MEDS: Ketorolac Inj 30 MG/ML (IVP) Vial IV.PUSH PRN (03:38)
[2017-12-16] MEDS: Sodium Chloride 0.45 % Inj 1,000 ML IV.CONT SCH (03:50)
[2017-12-16] MEDS: Metoprolol Tartrate 50 MG Tablet PO SCH (08:03)
[2017-12-16] MEDS: Senna/Docusate Sodium 8.6/50 MG Tablet PO SCH (08:04)
--- NOTE | 2017-12-16 08:36 | P.PNOP ---
Subjective Interval history: Patient more comfortable today. Ready for discharge to [facility]. Physical Exam Vital signs: Vital Signs 12/15/17 12:00 12/15/17 19:29 12/16/17 01:33 Temperature 99.4 F 99.0 F 98.5 F Pulse Rate 92 H 95 H 86 Respiratory Rate 18 18 18 Blood Pressure 125/60 130/73 155/72 H Pulse Oximetry 97 96 96 12/16/17 03:24 Temperature 98.4 F Pulse Rate 87 Respiratory Rate 18 Blood Pressure 128/57 L Pulse Oximetry 96 Intake & Output 12/15/17 12/16/17 12/16/17 18:59 06:59 18:59 Intake Total 1280 / 1280 1720 / 1720 Output Total 550 / 550 750 / 750 Balance 730 / 730 970 / 970 Weight 110.6 kg Intake: IV 1000 / 1000 1/2 Normal Saline Inj 1,000 ML 1000 / 1000 @ 84 mls/hr IV.CONT .[id number] [facility] Rx#:[id number] Oral 1280 / 1280 720 / 720 Output: Urine 550 / 550 750 / 750 Other: # Voids 2 Date of Last Bowel Movement 12/15/17 12/15/17 # Bowel Movements 1 0 - Constitutional no acute distress - Urinary Catheter Management Straight Cath placed during this visit: no Results - Labs CBC & Chem 7: 12/15/17 04:14 12/15/17 04:14 Assessment and Plan - Problem List (1) Status post total hip replacement, right Code(s): Z96.641 - Presence of right artificial hip joint Status: Acute - Attending Attestation Attending Attestation: Dressing dry and intact. He is neurovascular intact to his toes. No calf tenderness. Plan is for discharge today to [facility] for further treatment. He is being discharged in good condition.
[2017-12-16 09:47] VITALS: BP 143/68; PULSE 81; RESP 23; TEMP 98.2
[2017-12-16] MEDS: ALPRAZolam 0.25 MG Tablet PO PRN (10:30)
--- NOTE | 2017-12-17 10:42 | MD ---
cc: Jennifer Jordan MD DATE OF DISCHARGE: 12/16/2017 ADMITTING DIAGNOSIS: Arthritic degeneration, right hip status post pinning with Gan pins many years ago. DISCHARGE SUMMARY: This is a 57-year-old male who was admitted on 12/13/2017 with severe pain in his right hip from previous surgery and arthritic degeneration. He underwent removal of pins and taking down of contractures and then a right total hip arthroplasty. He began out of bed, tolerating food and fluid well and p.o. pain medications; continued to improve. Remaining afebrile. Vital signs stable and tolerating food and fluid well and discharged on third postoperative day to [facility] for continuation of care in good condition and continuation of anticoagulation therapy. J. Eleazar Jordan MD JRR/ld , 08:39 AM , 08:44 AM
== END 2017-12-16 10:58 ==
LOC: HSDI 05:25 → N06 13:10
PROVIDERS: ADMIT Surgery; ATTEND Surgery